=== PATIENT | female | born 1990 | race Caucasian/White ===

== ENCOUNTER 2017-05-07 12:53 | Emergency (ER) | payer MEDICAID ==
[~2017-05-07] VITALS: Ht 160 cm; Wt 83.9 kg
[~2017-05-07 12:53] MED LIST: PRENATAL VITAMINS TABLET
[2017-05-07 15:07] VITALS: BP 115/62
[2017-05-07] MEDS ORDERED: cefTRIAXone SOD 1,000 MG VL IM ONE (15:15)
[2017-05-07] MEDS ORDERED: diphenhdrAMINE HCL 50 MG/1 ML VL IM ONE (15:15)
[2017-05-07] MEDS ORDERED: methylPREDNISolone SOD SUCC 125 MG/2 ML VL IM ONE (15:15)
[2017-05-07] MEDS ORDERED: TETANUS-DIPTH-ACEL PERTUSSIS 0.5ML SYRG IM ONE (15:15)
== END 2017-05-07 15:25 | disposition home or self-care (01) ==
LOC: ER 12:55
DX: S40.262A Insect bite (nonvenomous) of left shoulder, initial encounter (principal); L03.114 Cellulitis of left upper limb; Z23 Encounter for immunization; W57.XXXA Bitten or stung by nonvenomous insect and other nonvenomous arthropods, initial encounter; Y93.89 Activity, other specified; Y99.8 Other external cause status; Y92.89 Other specified places as the place of occurrence of the external cause; Z87.442 Personal history of urinary calculi
CPT/HCPCS: 90471; 90715; 96372; 99284; J0696; J1200; J2930

== ENCOUNTER 2018-05-24 10:59 | Emergency (ER) | payer MEDICAID ==
[~2018-05-24] VITALS: Ht 167.6 cm; Wt 86.2 kg
[2018-05-24 11:12] VITALS: BP 134/75
[2018-05-24] MEDS ORDERED: LORazepam 2MG/ML-1ML VIAL IV ONE (11:15)
[2018-05-24] MEDS ORDERED: LORazepam 0.5 MG TAB PO ONE (12:15)
== END 2018-05-24 12:06 | disposition home or self-care (01) ==
LOC: ER 10:59 → EDUNIT# 10:59 → EDBD 10:59 → ER 12:00
DX: F41.9 Anxiety disorder, unspecified (principal); Z87.442 Personal history of urinary calculi
CPT/HCPCS: 96374; 99284; J2060

== ENCOUNTER 2018-07-25 11:04 | Emergency (ER) | payer MEDICAID ==
[~2018-07-25] VITALS: Ht 157.5 cm; Wt 77.1 kg
[2018-07-25 11:10] VITALS: BP 114/82
[2018-07-25 11:47] LABS: Basophils # (auto) 0.1 uL; Basophils % (auto) 0.8 % (0.0-2.0); Eosinophils # (auto) 0.1 uL; Eosinophils % (auto) 0.9 % (0.0-7.0); Hematocrit 45.6 % (36.0-46.0); Hemoglobin 15.5 g/dL (12.2-16.2); Lymphocytes # (auto) 1.3 uL; Lymphocytes % (auto) 19.4 % (10.0-50.0); Mean Corpuscular Hemoglobin 29.9 pg (28.0-32.0); Mean Corpuscular Hgb Conc. 33.9 g/dL (32.0-36.0); Mean Corpuscular Volume 88.1 fL (80.0-100.0); Monocytes # (auto) 0.6 uL; Monocytes % (auto) 9.3 % (0.0-12.0); Neutrophils # (auto) 4.8 uL; Neutrophils % (auto) 69.6 % (37.0-80.0); Nucleated Red Blood Cells % 0.1 %; Platelet Count (auto) 374 10^3/uL (140-450); Red Blood Cells 5.18 10^6/uL (4.0-5.20); Red Cell Distribution Width 12.7 % (11.8-14.3); White Blood Cell 6.9 10^3/uL (4.4-10.8)
[2018-07-25 12:08] LABS: BUN/Creatinine Ratio 8.1; Bilirubin, Total 0.6 mg/dL (0.2-1.0); Calcium 8.9 mg/dL (8.5-10.1); Potassium 3.7 mmol/L (3.5-5.1); Total Protein 8.5 g/dL (6.4-8.2)
== END 2018-07-25 15:00 | disposition left against medical advice (07) ==
LOC: EDUNIT# 11:04 → EDBD 11:04 → ER 11:04
DX: R10.9 Unspecified abdominal pain (principal); Z53.21 Procedure and treatment not carried out due to patient leaving prior to being seen by health care provider
CPT/HCPCS: 36415; 80053; 82150; 83690; 84702; 85025

== ENCOUNTER 2022-11-14 17:11 | Emergency (ER) | payer MEDICAID ==
[~2022-11-14] VITALS: Ht 160 cm; Wt 88.6 kg
[2022-11-14 18:20] VITALS: BP 121/72
[2022-11-14] MEDS ORDERED: KETOROLAC TROMETH 60MG/2ML VIAL IM ONE (18:45)
[2022-11-14] MEDS ORDERED: HYDROcodone-ACET 5/325MG TAB PO ONE (21:15)
[2022-11-14] MEDS ORDERED: ONDANSETRON ODT 4 MG TAB PO ONE (21:15)
== END 2022-11-15 01:04 | disposition home or self-care (01) ==
LOC: ER 17:11
DX: M54.50 Low back pain, unspecified (principal); M54.2 Cervicalgia; R51.9 Headache, unspecified; V43.52XA Car driver injured in collision with other type car in traffic accident, initial encounter; Y93.89 Activity, other specified; Y92.89 Other specified places as the place of occurrence of the external cause; Y99.8 Other external cause status
CPT/HCPCS: 72040; 72100; 96372; 99284; J1885; Q0162

== ENCOUNTER 2023-02-18 14:01 | Emergency (ER) | payer MEDICAID ==
[~2023-02-18] VITALS: Ht 160 cm; Wt 87.0 kg
[2023-02-18 14:20] LABS: Urine WBC None Seen /hpf (0 - 5)
[2023-02-18 14:34] LABS: Urine Bacteria FEW /hpf (None Seen); Urine Blood Negative /uL (Negative)
[2023-02-18 15:11] VITALS: BP 114/94
[2023-02-18] MEDS ORDERED: METH750T22 PO (16:06)
[2023-02-18] MEDS ORDERED: IBUP800T27 PO (16:06)
== END 2023-02-18 16:11 | disposition home or self-care (01) ==
LOC: ER 14:01
DX: S39.011A Strain of muscle, fascia and tendon of abdomen, initial encounter (principal); K42.9 Umbilical hernia without obstruction or gangrene; Z88.6 Allergy status to analgesic agent; Z87.442 Personal history of urinary calculi; X58.XXXA Exposure to other specified factors, initial encounter; Y93.89 Activity, other specified; Y92.89 Other specified places as the place of occurrence of the external cause; Y99.8 Other external cause status
CPT/HCPCS: 74176; 81001

== ENCOUNTER 2023-06-07 08:05 | Emergency (ER) | payer MEDICAID ==
[~2023-06-07] VITALS: Ht 160 cm; Wt 85.0 kg
[~2023-06-07 08:05] MED LIST changes: +IBUP-1456 PO; +METH-1182 PO
[2023-06-07 08:12] VITALS: BP 115/56
[2023-06-07] MEDS ORDERED: ACETAMINOPHEN 500 MG TAB PO ONE (09:00)
[2023-06-07] MEDS ORDERED: cefTRIAXone SOD 1,000 MG VL IM ONE (09:00)
[2023-06-07 09:05] LABS: Basophils # (auto) 0.1 10 ^3/uL (0-0.2); Basophils % (auto) 0.7 % (0.0-2.0); Eosinophils # (auto) 0.1 10 ^3/uL (0-0.8); Eosinophils % (auto) 0.9 % (0.0-7.0); Hematocrit 41.5 % (36.0-46.0); Hemoglobin 14.3 g/dL (12.2-16.2); Lymphocytes # (auto) 1.3 10 ^3/uL (0.4-5.4); Lymphocytes % (auto) 11.6 % (10.0-50.0); Mean Corpuscular Hemoglobin 30.9 pg (28.0-32.0); Mean Corpuscular Hgb Conc. 34.4 g/dL (32.0-36.0); Mean Corpuscular Volume 89.8 fL (80.0-100.0); Monocytes # (auto) 0.8 10 ^3/uL (0-1.3); Monocytes % (auto) 7.6 % (0.0-12.0); Neutrophils # (auto) 8.8 10 ^3/uL (1.6-8.6); Neutrophils % (auto) 79.2 % (37.0-80.0); Nucleated Red Blood Cells % 0.1 %; Red Blood Cells 4.62 10^6/uL (4.0-5.20); Red Cell Distribution Width 12.3 % (11.8-14.3); White Blood Cell 11.1 10^3/uL (4.4-10.8)
[2023-06-07] MEDS ORDERED: BACDST PO (09:38)
[2023-06-07] MEDS ORDERED: ACET-1304 PO (09:38)
== END 2023-06-07 09:43 | disposition home or self-care (01) ==
LOC: ER 08:05
DX: L03.115 Cellulitis of right lower limb (principal); Z87.442 Personal history of urinary calculi; Z87.440 Personal history of urinary (tract) infections
CPT/HCPCS: 36415; 85025; 96372; 99283; J0696

== ENCOUNTER 2024-11-11 12:41 | Inpatient (IN) | payer MEDICAID ==
[~2024-11-11] VITALS: Ht 160 cm; Wt 90.8 kg
[~2024-11-11 12:41] MED LIST changes: +ACET-1304 PO; +BACDST PO
--- NOTE | 2024-11-11 13:22 | ED.PDOC ---
GI ASSESSMENT HPI Comments HPI: Poor Historian. 34-year-old female presents to the emergency department for evaluation of 1 hour history of lower abdominal pain. She points to her suprapubic region. Pain is associated with nausea and vomiting one episode nonbilious nonbloody. Patient denies any other acute symptoms. Pain is constant nonradiating. No alleviating or precipitating factors. Patient is ambulatory in the ED. VITALS: Temp: 98.9F RR: 16 02 sat : 100 % on room air HR: 80 BP: 122/76 PMH: denies PSH: Social history: denies tobacco use, denies ETOH use, denies drug use Medications: denies Allergies: nkda REVIEW OF SYSTEMS: CONSTITUTIONAL: Denies acute: fever, diaphoresis, chills, generalized weakness. HEAD: Denies acute: headache, photophobia Eyes: Denies acute: Double vision, vision loss, eye pain, eye discharge. EARS: Denies acute: tinnitus, hearing loss, ear discharge, ear pain, THROAT: Denies acute: sore throat, swelling, difficulty swallowing , pain with swallowing, change in voice. NECK: Denies acute: neck pain, neck swelling, stiff neck. HEART: Denies acute : chest pain, palpitations, LUNGS: Denies acute: SOB, wheezing, cough, hemoptysis ABDOMEN: Denies acute: diarrhea, melena , hematemesis, hematochezia SKIN: Denies acute: rash, redness, lesions, itchiness. EXTREMITIES: Denies acute: calf pain, numbness, tingling, weakness, denies pain in extremity. Denies acute: Low back pain. Neuro: Denies acute: focal neurological deficit, motor or sensory focal neurological deficit, tremors, seizure like activity, confusion, dizziness, change in mental status, loss of bowel or bladder function, cauda equina like symptoms. : Denies acute: dysuria, hematuria, flank pain, increase in urinary frequency. PSYCH: Denies acute: hallucination, suicidal ideation, homicidal ideation. FEMALE: Denies acute: abnormal vaginal bleeding, foul odor, unusual discharge. PHYSICAL EXAM: General: no acute distress, awake and alert. Head: normocephalic, atraumatic. Neck: supple, trachea is midline, no swelling. Throat: Normal phonation. Eyes:, no erythema, no purulent discharge, no proptosis, no icterus. Heart: regular rate, regular rhythm, no significant murmur appreciated. Lungs: no apparent respiratory distress, Able to speak in full sentences. No wheezing, no rhonchi, no crackles. No stridors Clear to auscultation bilaterally. Abdomen: Suprapubic tender to palpation, non distended, soft, no guarding, no rebound, + bowel sounds. Neuro: Awake, Alert, oriented to name, self, situation, follows commands GCS=15. Speech is normal. Skin: no petechia, no purpura, no cyanosis, non-pale, not jaundice. Lower extremities: --no - Pitting edema no deformity, no focal swelling, no calf TTP. Makes eye contact. moves all four extremities. Ambulating in the ED independently. Chief Complaint: Abdominal Pain Time Seen by MD: 12:55 Primary Care Provider: UNKNOWN Reviewed Notes: Nurses Notes, Medications, Allergies Allergies: Coded Allergies: NO KNOWN ALLERGIES (Unverified , 06/16/13) Home Meds Active Scripts Sulfamethoxazole W/Trimethopri (Bactrim Ds Tablet) 1 Tab Tb, 1 TAB PO BID for 10 Days, #20 TAB 0 Refills Prov:DOROTHY MANUEL [employer] AUTHOR 06/07/23 Acetaminophen (Tylenol Extra Strength) 500 Mg Tab, 500 MG PO QID for 14 Days, #56 TAB 0 Refills Prov:DOROTHY MANUEL M[employer] AUTHOR 06/07/23 Methocarbamol (Methocarbamol) 750 Mg Tab, 750 MG PO QHSP PRN, #20 TAB Prov:SHRAVAN ALBERTO 02/18/23 Ibuprofen (Ibuprofen) 800 Mg Tab, 1 TAB PO TID, #30 TAB Prov:SHRAVAN ALBERTO 02/18/23 Reported Medications [ Vitamins Tablet] No Conflict Check 08/02/13 Information Source: Patient Mode of Arrival: Ambulatory Past Medical History PAST MEDICAL HISTORY: Kidney Stones, UTI'S Surgical History: OPTIMIZATION SPECIALIST History: No Pertinent OPTIMIZATION SPECIALIST History Family History Family History: Reviewed,noncontributory to illness Social History Smoker: Non-Smoker Alcohol: Denies ETOH Use Drugs: Denies Drug Use Lives In: Home Was a procedure done? Was a procedure done?: No GI differential Dx Differential Diagnosis: Other (DDX include Diverticulitis, colitis, gastroen teritis, acute abdomen, SBO, enteritis, constipation, volvulus, appendicitis, Gallbladder disease, choledocolithiasis, ascending cholangitis, pancreatitis, intraAbdominal mass/neoplasm, hepatitis, UTI, pylonephritis, kidney stone, aneurysm, dissection, Inflammatory bowel disease, gastroparesis, ischemic bowel, ovarian torsion, ovarian cyst/mass, tubo-ovarian abscess, , ec topic , PID, STD.) X-Ray, Labs, Meds, VS Vital Signs Date Time Temp Pulse Resp B/P (MAP) Pulse Ox O2 Delivery O2 Flow Rate FiO2 11/11/24 18:32 106/60 11/11/24 18:29 98.2 68 20 106/60 (75) 98 98.2 11/11/24 14:32 98.7 89 18 103/69 (80) 100 98.7 11/11/24 14:32 89 18 100 Room Air 11/11/24 14:30 89 18 100 Room Air* 0 21 11/11/24 12:59 98.9 80 16 122/76 (91) 100 Lab Test 11/11/24 13:38 11/11/24 13:05 Range/Units White Blood Count 20.0 H 4.4-10.8 10^3/uL Red Blood Count 4.87 4.0-5.20 10^6/uL Hemoglobin 14.9 12.2-16.2 g/dL Hematocrit 43.8 36.0-46.0 % Mean Corpuscular Volume 89.9 80.0-100.0 fL Mean Corpuscular Hemoglobin 30.5 28.0-32.0 pg Mean Corpuscular Hemoglobin Concent 33.9 32.0-36.0 g/dL Red Cell Distribution Width 13.0 11.8-14.3 % Platelet Count 428 140-450 10^3/uL Mean Platelet Volume 9.5 6.9-10.8 fL Neutrophils (%) (Auto) 86.4 H 37.0-80.0 % Lymphocytes (%) (Auto) 8.9 L 10.0-50.0 % Monocytes (%) (Auto) 3.4 0.0-12.0 % Eosinophils (%) (Auto) 1.0 0.0-7.0 % Basophils (%) (Auto) 0.3 0.0-2.0 % Neutrophils # (Auto) 17.3 H 1.6-8.6 10 ^3/uL Lymphocytes # (Auto) 1.8 0.4-5.4 10 ^3/uL Monocytes # (Auto) 0.7 0-1.3 10 ^3/uL Eosinophils # (Auto) 0.2 0-0.8 10 ^3/uL Basophils # (Auto) 0.1 0-0.2 10 ^3/uL Nucleated Red Blood Cells 0.1 % Sodium Level 141 136-145 mmol/L Potassium Level 4.2 3.5-5.1 mmol/L Chloride Level 107 98-107 mmol/L Carbon Dioxide Level 26 20-31 mmol/L Anion Gap 8 5-15 Blood Urea Nitrogen 9 9-23 mg/dL Creatinine 0.68 0.550-1.02 mg/dL Glomerular Filtration Rate Calc 116 >90 mL/min BUN/Creatinine Ratio 13.2 10.0-20.0 Serum Glucose 89 74-106 mg/dL Lactic Acid Level 2.0 0.4-2.0 mmol/L Calcium Level 10.0 8.7-10.4 mg/dL Total Bilirubin 0.7 0.2-1.0 mg/dL Aspartate Amino Transferase (AST) 11 L 13-40 U/L Alanine Aminotransferase (ALT) 17 7-40 U/L Alkaline Phosphatase 50 46-116 U/L Total Protein 7.0 5.7-8.2 g/dL Albumin 4.5 3.2-4.8 g/dL Lipase 27 12-53 U/L Beta HCG, Quantitative 2.1 1.5-4.2 mIU/mL Urine Color Yellow Yellow Urine Clarity Clear Clear Urine pH 6.0 5.0-9.0 Urine Specific [place] 1.023 1.001-1.035 Urine Protein Negative Negative Urine Ketones Negative Negative Urine Blood Negative Negative /uL Urine Nitrite Negative Negative Urine Bilirubin Negative Negative Urine Urobilinogen Normal Negative mg/dL Urine Leukocyte Esterase Negative Negative /uL Urine RBC None seen 0 - 4 /hpf Urine WBC 1 0 - 5 /hpf Urine Squamous Epithelial Cells Few <5 /hpf Urine Bacteria None seen None Seen /hpf Urine Mucus Few None Seen Urine Glucose Normal Normal mg/dL Urine Opiates Screen Neg NEGATIVE Urine Fentanyl Screen Neg NEGATIVE Urine Barbiturates Screen Neg NEGATIVE Urine Phencyclidine Screen Neg NEGATIVE Urine Amphetamines Screen Neg NEGATIVE Urine Benzodiazepines Screen Neg NEGATIVE Urine Cocaine Screen Neg NEGATIVE Urine Cannabinoids Screen Pos NEGATIVE Current Medications Medications (Trade) Dose Ordered Sig/Tacho Route Start Time Stop Time Status Last Admin Sodium Chloride 1,000 ml @ 1,000 mls/hr Q1H ONCE IV 11/11/24 13:15 11/11/24 14:14 DC 11/11/24 14:33 Ondansetron HCl (Zofran) 8 mg ONCE ONCE IV 11/11/24 13:15 11/11/24 13:16 DC 11/11/24 14:43 Piperacillin Sod/ Tazobactam Sod 100 ml @ 100 mls/hr ONCE ONCE IV 11/11/24 15:15 11/11/24 16:14 DC 11/11/24 15:20 Fentanyl Citrate 100 mcg ONCE ONCE IV 11/11/24 16:30 11/11/24 16:31 DC 11/11/24 18:32 [place] [id number] Ph: [phone] DIAGNOSTIC IMAGING Diagnostic Imaging Report : [id number] Signed PATIENT: MIA FERRISCCT: [id number] UNIT: [id number] : 1990 LOC: ER ROOM / BED: / AGE / SEX: 34 / F ADM STATUS: REG ER SERVICE 1311 ORDERING PHYSICIAN: VALENTINA QUIROGA DO PROCEDURE(s): ABPL - CT AB PEL WO CON-NO ORAL OR IV REASON: lower abd pain/n/v ORDER NUMBER(s): [id number], ACCESSION NUMBER(s): [id number] CT ABDOMEN AND PELVIS WITHOUT CONTRAST CLINICAL HISTORY: lower abd pain/n/v TECHNIQUE: Multiple contiguous axial images of the abdomen and pelvis without intravenous contrast. The images were reformatted degenerate coronal and sagittal reconstructions. All CT scans at this medical facility are performed using dose modulation techniques as appropriate to a performed exam including the following:Automated exposure control was utilized; adjustment of the MA and/or KV according to patient size; and use of iterative reconstruction technique. Radiation Dose Information: CT Dose: CTDI volume is 17.24 mGy. Dose-length product is 837.82 mGy*cm Comparison: CT CT AB PEL WO CON-NO ORAL OR IV on DOS: 02/18/23 FINDINGS: Evaluation of the abdomen and pelvis is limited without intravenous contrast. The liver, gallbladder, pancreas, kidneys, adrenal glands, and spleen appear within normal limits. There is no gross evidence of abdominal lymphadenopathy. There is no free fluid or free air. The stomach grossly appears unremarkable. The small and large bowel loops demonstrate normal caliber and appear within normal limits.. The abdominal aorta and IVC appear within normal limits. There is a tiny fat containing umbilical hernia. The bladder appears unremarkable for the degree of distention. Pelvic organ appe ars within normal limits. There is no gross evidence of a pelvic mass. There is no free fluid collection. Lung bases are clear. There is no acute osseous abnormality. IMPRESSION: 1. There is no acute process in the abdomen and pelvis. HS:Y ATED BY: DANIEL GARBER MD DICTATED DATE/TIME: 11/11/24 1502 SIGNED BY: DANIEL GARBER MD SIGNED DATE/TIME: 11/11/24 1502 CC: Patient Education/Counseling: Diagnosis, Treatment Family Education/Counseling: No Family Present Departure 1 Departure Impression: Primary Impression: Leukocytosis Additional Impression: Suprapubic pain, acute Disposition: 09 ADMITTED INPATIENT Admit to: Tele Condition: Guarded Discharged With: Self Critical Care Note Critical Care Time?: No I personally scribed for VALENTINA QUIROGA DO ([email or web address]) on 11/11/24 at 19:05. Electronically submitted by Mago Matthews ([facility]). VALENTINA QUIROGA DO Nov 11, 2024 13:22
[2024-11-11 13:30] LABS: Urine Bacteria None Seen /hpf (None Seen)
[2024-11-11 13:46] LABS: Urine Blood Negative /uL (Negative); Urine Clarity Clear (Clear); Urine Color Yellow (Yellow); Urine Mucus FEW (None Seen); Urine Protein, UAD Negative (Negative); Urine Specific Gravity 1.023 (1.001-1.035); Urine Urobilinogen Normal (Negative); Urine WBC 1 /hpf (0 - 5)
[2024-11-11 13:52] LABS: Cannabinoid Screen, Urine Pos (NEGATIVE)
[2024-11-11 14:01] LABS: Basophils # (auto) 0.1 10 ^3/uL (0-0.2); Basophils % (auto) 0.3 % (0.0-2.0); Eosinophils # (auto) 0.2 10 ^3/uL (0-0.8); Hematocrit 43.8 % (36.0-46.0); Hemoglobin 14.9 g/dL (12.2-16.2); Lymphocytes # (auto) 1.8 10 ^3/uL (0.4-5.4); Lymphocytes % (auto) 8.9 % (10.0-50.0); Mean Corpuscular Hemoglobin 30.5 pg (28.0-32.0); Mean Corpuscular Hgb Conc. 33.9 g/dL (32.0-36.0); Mean Corpuscular Volume 89.9 fL (80.0-100.0); Monocytes # (auto) 0.7 10 ^3/uL (0-1.3); Monocytes % (auto) 3.4 % (0.0-12.0); Neutrophils # (auto) 17.3 10 ^3/uL (1.6-8.6); Neutrophils % (auto) 86.4 % (37.0-80.0); Nucleated Red Blood Cells % 0.1 %; Platelet Count (auto) 428 10^3/uL (140-450); Red Blood Cells 4.87 10^6/uL (4.0-5.20)
[2024-11-11 14:10] LABS: Amphetamine Screen, Urine Neg (NEGATIVE); Barbiturate Scree,Urine Neg (NEGATIVE); Benzodiazephine Screen, Urine Neg (NEGATIVE); Cocaine Screen, Urine Neg (NEGATIVE); Opiate Scree,Urine Neg (NEGATIVE); Phencyclidine Screen, Urine Neg (NEGATIVE)
[2024-11-11 14:24] LABS: Alanine Aminotransferase 17 U/L (7-40); Albumin 4.5 g/dL (3.2-4.8); Alkaline Phosphatase 50 U/L (46-116); Anion Gap 8 (5-15); BUN/Creatinine Ratio 13.2 (10.0-20.0); Carbon Dioxide 26 mmol/L (20-31); Chloride 107 mmol/L (98-107); Glucose 89 mg/dL (74-106); Potassium 4.2 mmol/L (3.5-5.1); Sodium 141 mmol/L (136-145)
[2024-11-11 14:30] VITALS: PULSE 89; RESP 18; O2SAT 100
[2024-11-11 14:32] LABS: Aspartate Aminotransferase 11 U/L (13-40); Blood Urea Nitrogen 9 mg/dL (9-23)
[2024-11-11] MEDS: SODIUM CHLORIDE 0.9% 1,000 ML IV ONE (14:33)
[2024-11-11] MEDS: ONDANSETRON HCL 4 MG/2 ML VIAL IV ONE (14:43)
[2024-11-11 14:49] LABS: Lipase 27 U/L (12-53)
[2024-11-11 14:51] LABS: Bilirubin, Total 0.7 mg/dL (0.2-1.0)
--- NOTE | 2024-11-11 15:03 | DVH ---
CT ABDOMEN AND PELVIS WITHOUT CONTRAST CLINICAL HISTORY: lower abd pain/n/v TECHNIQUE: Multiple contiguous axial images of the abdomen and pelvis without intravenous contrast. The images were reformatted degenerate coronal and sagittal reconstructions. All CT scans at this medical facility are performed using dose modulation techniques as appropriate t o a performed exam including the following:Automated exposure control was utilized; adjustment of the MA and/or KV according to patient size; and use of iterative reconstruction technique. Radiation Dose Information: CT Dose: CTDI volume is 17.24 mGy. Dose-length product is 837.82 mGy*cm Comparison: CT CT AB PEL WO CON-NO ORAL OR IV on DOS: 02/18/23 FINDINGS: Evaluation of the abdomen and pelvis is limited without intravenous contrast. The liver, gallbladder, pancreas, kidneys, adrenal glands, and spleen appear within normal limits. There is no gross evidence of abdominal lymphadenopathy. There is no free fluid or free air. The stomach grossly appears unremarkable. The small and large bowel loops demonstrate normal caliber and appear within normal limits.. The abdominal aorta and IVC appear within normal limits. There is a tiny fat containing umbilical her rebecca. The bladder appears unremarkable for the degree of distention. Pelvic organ appears within normal german its. There is no gross evidence of a pelvic mass. There is no free fluid collection. Lung bases are clear. There is no acute osseous abnormality. IMPRESSION: 1. There is no acute process in the abdomen and pelvis. HS:Y
[2024-11-11] MEDS: PIPERACILLIN-TAZOB 3.375GM 100 ML IV ONE (15:20)
[2024-11-11] MEDS: fentaNYL CITRATE 100 MCG/2 ML VL IV ONE (18:32)
[2024-11-11] MEDS ORDERED: MORPHINE SULFATE INJ 2 MG/ml SYRG IV PRN ×2 (19:30→21:30)
[2024-11-11] MEDS ORDERED: ONDANSETRON HCL 4 MG/2 ML VIAL IV PRN (19:30)
[2024-11-11] MEDS ORDERED: ACETAMINOPHEN 325 MG TAB PO PRN (19:30)
[2024-11-11] MEDS ORDERED: DOCUSATE SOD 100 MG CAP PO PRN (19:30)
[2024-11-11] MEDS: PANTOPRAZOLE 40 MG/10 ML VIAL INJ IV ONE (20:15)
--- NOTE | 2024-11-11 21:23 | DVHHP2 ---
History of Present Illness Reason for Visit: Acute abdominal pain History of Present Illness The patient is a 34-year-old female who denies past medical history presented to [facility] ED with complaint of acute abdominal pain. Patient reports symptoms progressively get worse with suprapubic abdominal pain, rating 7/10 numeric scale, associated nausea, vomiting, getting worse today that prompted this visit. Patient was seen and evaluated in the ED, laboratory data shows WBC 20.0, platelets 428, sodium 141, potassium 4.2, BUN 9, creatinine 0.68, glucose 89, lipase 27, AST 11, ALT 17. Please see medication orders section in the computer. On my assessment, patient denied chest pain, no headache, no dizziness, no shortness of breath, no nausea or vomiting at this moment, no fever, no chills. No other modifying factor or other associated signs and symptoms noted. The patient was admitted to the hospital for further evaluation and medical management. Past Medical History Denies past medical history Past Surgical History section Family History Reviewed, noncontributory to the management of this case. Past Social History The patient lives at home, denies smoking, alcohol or illicit drugs abuse. Review of Systems Constitutional: No: Fever, Chills, Sweats, Weakness, Malaise, Other Eyes: No: Pain, Vision change, Conjunctivae inflammation, Eyelid inflammation, Other, Redness ENT: No: Ear pain, Ear discharge, Nose pain, Nose discharge, Nose congestion, Mouth pain, Mouth swelling, Throat pain, Throat swelling, Other Respiratory: No: Cough, Dry, Shortness of breath, SOB with excertion, Wheezing, Hemoptysis, Pleuritic Pain, Sputum, Wheezing, Other Cardiovascular: No: Chest Pain, Palpitations, Orthopnea, Paroxysmal Noc. Dyspnea, Edema, Lt Headedness, Other Gastrointestinal: Nausea, Vomiting, Abdominal Pain; No: Diarrhea, Constipation, Melena, Hematochezia, Other Genitourinary: No Dysuria, No Frequency, No Incontinence, No Hematuria, No Retention, No Other Musculoskeletal: No: other, neck pain, shoulder pain, arm pain, back pain, hand pain, leg pain, foot pain Skin: No: Rash, Lesions, Jaundice, Bruising, Other Neurological: No: Weakness, Numbness, Incoordination, Change in speech, Confusion, Seizures, Other Allergies: Coded Allergies: NO KNOWN ALLERGIES (Unverified , 06/16/13) Medications Current Medications Medications Dose Ordered Sig/Tacho Route Start Time Stop Time Status Last Admin Dose Admin Piperacillin Sod/ Tazobactam Sod 100 ml @ 25 mls/hr Q8HR IV 11/11/24 22:00 UNV Pantoprazole Sodium 40 mg DAILY@0630 IV 11/12/24 06:30 Sodium Chloride 10 ml Q8HR IV 11/11/24 22:00 Acetaminophen/ Hydrocodone Bitart 1 tab Q4HP PRN PO 11/11/24 19:30 Ondansetron HCl 4 mg Q4HP PRN IV 11/11/24 19:30 Docusate Sodium 100 mg BIDPRN PRN PO 11/11/24 19:30 Acetaminophen 650 mg Q6HP PRN PO 11/11/24 19:30 Morphine Sulfate 2 mg Q4HPRN PRN IV 11/11/24 19:30 Exam Vital Signs Vital Signs Date Time Temp Pulse Resp B/P (MAP) Pulse Ox O2 Delivery O2 Flow Rate FiO2 11/11/24 19:01 98.6 65 20 114/59 (77) 98 98.6 11/11/24 14:32 Room Air 11/11/24 14:30 0 21 General Appearance: Alert, Oriented X3, Cooperative, No acute distress HEENT: Atraumatic, PERRLA, EOMI, Mucous membr. moist/pink Respiratory: Clear to auscultation, Normal air movement Cardiovascular: Regular rate, Normal S1, Normal S2, No murmurs Abdominal: Normal bowel sounds, Soft, No hepatospenomegaly, No masses, Other (Reports tenderness) Extremities: No clubbing, No cyanosis, No edema, Normal pulses, No tenderness/swelling Skin: No rashes, No breakdown, No significant lesion Neuro: Normal gait, Normal speech, Strength at 5/5 X4 ext, Normal tone, Sensation intact, Cranial nerves 3-12 NL, Reflexes 2+ Psych/Mental Status: Mental status NL, Mood NL Labs/Xrays Labs Test 11/11/24 13:38 11/11/24 13:05 Range/Units White Blood Count 20.0 H 4.4-10.8 10^3/uL Red Blood Count 4.87 4.0-5.20 10^6/uL Hemoglobin 14.9 12.2-16.2 g/dL Hematocrit 43.8 36.0-46.0 % Mean Corpuscular Volume 89.9 80.0-100.0 fL Mean Corpuscular Hemoglobin 30.5 28.0-32.0 pg Mean Corpuscular Hemoglobin Concent 33.9 32.0-36.0 g/dL Red Cell Distribution Width 13.0 11.8-14.3 % Platelet Count 428 140-450 10^3/uL Mean Platelet Volume 9.5 6.9-10.8 fL Neutrophils (%) (Auto) 86.4 H 37.0-80.0 % Lymphocytes (%) (Auto) 8.9 L 10.0-50.0 % Monocytes (%) (Auto) 3.4 0.0-12.0 % Eosinophils (%) (Auto) 1.0 0.0-7.0 % Basophils (%) (Auto) 0.3 0.0-2.0 % Neutrophils # (Auto) 17.3 H 1.6-8.6 10 ^3/uL Lymphocytes # (Auto) 1.8 0.4-5.4 10 ^3/uL Monocytes # (Auto) 0.7 0-1.3 10 ^3/uL Eosinophils # (Auto) 0.2 0-0.8 10 ^3/uL Basophils # (Auto) 0.1 0-0.2 10 ^3/uL Nucleated Red Blood Cells 0.1 % Sodium Level 141 136-145 mmol/L Potassium Level 4.2 3.5-5.1 mmol/L Chloride Level 107 98-107 mmol/L Carbon Dioxide Level 26 20-31 mmol/L Anion Gap 8 5-15 Blood Urea Nitrogen 9 9-23 mg/dL Creatinine 0.68 0.550-1.02 mg/dL Glomerular Filtration Rate Calc 116 >90 mL/min BUN/Creatinine Ratio 13.2 10.0-20.0 Serum Glucose 89 74-106 mg/dL Lactic Acid Level 2.0 0.4-2.0 mmol/L Calcium Level 10.0 8.7-10.4 mg/dL Total Bilirubin 0.7 0.2-1.0 mg/dL Aspartate Amino Transferase (AST) 11 L 13-40 U/L Alanine Aminotransferase (ALT) 17 7-40 U/L Alkaline Phosphatase 50 46-116 U/L Total Protein 7.0 5.7-8.2 g/dL Albumin 4.5 3.2-4.8 g/dL Lipase 27 12-53 U/L Beta HCG, Quantitative 2.1 1.5-4.2 mIU/mL Urine Color Yellow Yellow Urine Clarity Clear Clear Urine pH 6.0 5.0-9.0 Urine Specific [place] 1.023 1.001-1.035 Urine Protein Negative Negative Urine Ketones Negative Negative Urine Blood Negative Negative /uL Urine Nitrite Negative Negative Urine Bilirubin Negative Negative Urine Urobilinogen Normal Negative mg/dL Urine Leukocyte Esterase Negative Negative /uL Urine RBC None seen 0 - 4 /hpf Urine WBC 1 0 - 5 /hpf Urine Squamous Epithelial Cells Few <5 /hpf Urine Bacteria None seen None Seen /hpf Urine Mucus Few None Seen Urine Glucose Normal Normal mg/dL Urine Opiates Screen Neg NEGATIVE Urine Fentanyl Screen Neg NEGATIVE Urine Barbiturates Screen Neg NEGATIVE Urine Phencyclidine Screen Neg NEGATIVE Urine Amphetamines Screen Neg NEGATIVE Urine Benzodiazepines Screen Neg NEGATIVE Urine Cocaine Screen Neg NEGATIVE Urine Cannabinoids Screen Pos NEGATIVE PATIENT: MIA FERRISCCT: [id number] UNIT: [id number] : 1990 LOC: ER ROOM / BED: / AGE / SEX: 34 / F ADM STATUS: REG ER SERVICE 1311 ORDERING PHYSICIAN: VALENTINA QUIROGA DO PROCEDURE(s): ABPL - CT AB PEL WO CON-NO ORAL OR IV REASON: lower abd pain/n/v ORDER NUMBER(s): [id number], ACCESSION NUMBER(s): [id number] CT ABDOMEN AND PELVIS WITHOUT CONTRAST CLINICAL HISTORY: lower abd pain/n/v TECHNIQUE: Multiple contiguous axial images of the abdomen and pelvis without intravenous contrast. The images were reformatted degenerate coronal and sagittal reconstructions. All CT scans at this medical facility are performed using dose modulation techniques as appropriate to a performed exam including the following:Automated exposure control was utilized; adjustment of the MA and/or KV according to patient size; and use of iterative reconstruction technique. Radiation Dose Information: CT Dose: CTDI volume is 17.24 mGy. Dose-length product is 837.82 mGy*cm Comparison: CT CT AB PEL WO CON-NO ORAL OR IV on DOS: 02/18/23 FINDINGS: Evaluation of the abdomen and pelvis is limited without intravenous contrast. The liver, gallbladder, pancreas, kidneys, adrenal glands, and spleen appear within normal limits. There is no gross evidence of abdominal lymphadenopathy. There is no free fluid or free air. The stomach grossly appears unremarkable. The small and large bowel loops demonstrate normal caliber and appear within normal limits.. The abdominal aorta and IVC appear within normal limits. There is a tiny fat containing umbilical hernia. The bladder appears unremarkable for the degree of distention. Pelvic organ appears within normal limits. There is no gross evidence of a pelvic mass. There is no free fluid collection. Lung bases are clear. There is no acute osseous abnormality. IMPRESSION: 1. There is no acute process in the abdomen and pelvis. Assessment/Plan Assessment/Plan Leukocytosis, unspecified Suprapubic pain, acute Plan 1. Admit to med surge unit 2. Breathing treatment 3. Pain control management 4. IV antibiotic management 5. Management of fluids and electrolytes 6. Consultation for hospitalist 7. Diagnostic test abdomen/pelvis CT 8. DVT prophylaxis-on SCDs 9. Repeat labs CBC, CMP in a.m. 10. Continue with current medical management 11. Treatment plan discussed with patient and RN. Patient verbalized understanding. Plan discussed with: Patient, Other (RN) My Orders Orders - CARSON ANSARI DNP Procedure Category Date Status Time Piperacillin-Tazob PHA 11/11/24 Logged 3.375gm (Zosyn 3.375g 22:00 Pantoprazole PHA 11/12/24 In Process (Protonix) 06:30 Allergies AISHA 11/11/24 In Process 19:28 Code Status CODE 11/11/24 Transmitted 19:28 Sodium Chloride Lock PHA 11/11/24 In Process (Saline Lock Ns) 22:00 Oxygen Per Hour RT 11/11/24 Transmitted 19:28 Hydrocodone-Acet PHA 11/11/24 In Process 5/325mg Tab (Hope 19:30 Ondansetron Hcl PHA 11/11/24 In Process (Zofran) 19:30 Docusate Sodium PHA 11/11/24 In Process Capsule (Colace 19:30 Complete Blood Count LAB 11/12/24 Verified 04:00 Comprehensive LAB 11/12/24 Verified Metabolic Panel 04:00 Condition: Serious AISHA 11/11/24 In Process 19:28 Acetaminophen Tablet PHA 11/11/24 In Process (Tylenol Tablet) 19:30 Clear Liq Diet DIET 11/12/24 Transmitted Breakfast Bedrest With Bathroom AISHA 11/11/24 In Process Privileg 19:28 Morphine Sulfate PHA 11/11/24 In Process Injection 19:30 Sequential AISHA 11/11/24 In Process Compression Device Problem List: (1) Suprapubic pain, acute (2) Leukocytosis, unspecified Date of Service: Nov 11, 2024 Billing Provider: CARSON ANSARI DNP Common Visit Codes: [id number] INP/OBS CARE (MOD) CARSON ANSARI DNP Nov 11, 2024 21:23
[2024-11-11] MEDS ORDERED: NITROGLYCERIN 0.4 MG SL TAB SL PRN (21:30)
[2024-11-11] MEDS: SODIUM CHLOR 0.9% PF (SALINE LOCK) 10ML VIAL/SYR IV SCH (22:46)
[2024-11-11] MEDS: PIPERACILLIN-TAZOB 3.375GM 100 ML IV SCH (22:52)
[2024-11-11 23:45] VITALS: BP 107/49; PULSE 68; RESP 17; TEMP 97.6; O2SAT 97
[2024-11-11] MEDS: HYDROcodone-ACET 5/325MG TAB PO PRN (23:57)
[2024-11-12] VITALS (9 sets, daily range): BP systolic 90–110; BP diastolic 41–62; PULSE 59–72; RESP 16–18; TEMP 97.6–99; O2SAT 96–100
[2024-11-12] MEDS ORDERED: FLUO-470 PO (00:03)
[2024-11-12] MEDS ORDERED: TRAZ-227 PO (00:03)
[2024-11-12] MEDS: PANTOPRAZOLE 40 MG/10 ML VIAL INJ IV SCH (06:44)
[2024-11-12 06:49] LABS: Basophils # (auto) 0 10 ^3/uL (0-0.2); Basophils % (auto) 0.3 % (0.0-2.0); Eosinophils # (auto) 0.2 10 ^3/uL (0-0.8); Eosinophils % (auto) 2.8 % (0.0-7.0); Hematocrit 36.7 % (36.0-46.0); Hemoglobin 12.6 g/dL (12.2-16.2); Lymphocytes # (auto) 2.6 10 ^3/uL (0.4-5.4); Lymphocytes % (auto) 28.7 % (10.0-50.0); Mean Corpuscular Hemoglobin 30.8 pg (28.0-32.0); Mean Corpuscular Hgb Conc. 34.5 g/dL (32.0-36.0); Mean Corpuscular Volume 89.4 fL (80.0-100.0); Monocytes # (auto) 0.5 10 ^3/uL (0-1.3); Monocytes % (auto) 6.1 % (0.0-12.0); Neutrophils # (auto) 5.5 10 ^3/uL (1.6-8.6); Neutrophils % (auto) 62.1 % (37.0-80.0); Platelet Count (auto) 300 10^3/uL (140-450); Red Cell Distribution Width 12.9 % (11.8-14.3); White Blood Cell 8.9 10^3/uL (4.4-10.8)
[2024-11-12 07:12] LABS: Alanine Aminotransferase 12 U/L (7-40); Albumin 3.7 g/dL (3.2-4.8); Anion Gap 7 (5-15); BUN/Creatinine Ratio 6.4 (10.0-20.0); Calcium 8.9 mg/dL (8.7-10.4); Carbon Dioxide 28 mmol/L (20-31); Chloride 106 mmol/L (98-107); Glucose 89 mg/dL (74-106); Sodium 141 mmol/L (136-145)
[2024-11-12 07:13] LABS: Total Protein 5.9 g/dL (5.7-8.2)
[2024-11-12 07:21] LABS: Alkaline Phosphatase 39 U/L (46-116); Aspartate Aminotransferase 9 U/L (13-40); Blood Urea Nitrogen 5 mg/dL (9-23); Potassium 3.3 mmol/L (3.5-5.1)
--- NOTE | 2024-11-12 14:01 | DVHPN2 ---
Assessment/Plan Assessment/Plan Progress note Subjective 34 yo F admitted for abdominal pain, diffuse. Able to tolerate oral, no N/V/D. hx of HSV-2, sexually active, no protection, 1 partner. Objective Physical exam Alert, oriented x3 PERRLA No JVD Clear breath sounds bilaterally S1-S2 regular rate and rhythm no murmur difusely tender abdomen, no rebound, guarding Moving all four extremities No lower extremity edema Lab wbc 20 (doubt) -> 8 K 3.3 UDS cannabis Imaging CTAP clear Assessment and plan abdominal pain, possible PID vs UTI UA clear send UCX ceft and doxy send RPR HIV GC regular diet pelvic uS Replete electrolytes Diet regular DVT prophylaxis ambulatory Plan discussed with: Patient My Orders Orders - TRACI GALLARDO MD Procedure Category Date Status Time Pelvic US 11/12/24 Verified 13:56 Chlamydia/Gc LAB 11/12/24 Verified Amplification 13:56 Hiv 1&2 Antibody LAB 11/12/24 Verified 13:56 RPR LAB 11/12/24 Verified 13:56 [place] LAB 11/12/24 Verified 13:56 Ceftriaxone Ivpb PHA 11/13/24 Verified Rocephin 09:00 Doxycycline PHA 11/12/24 Verified 100mg/250ml 14:00 Regular Diet DIET 11/12/24 Verified Dinner Date of Service: Nov 12, 2024 Billing Provider: TRACI GALLARDO MD Common Visit Codes: [id number] INP/OBS CARE(HIGH) TRACI GALLARDO MD Nov 12, 2024 14:01
[2024-11-12 14:38] LABS: Basophils # (auto) 0 10 ^3/uL (0-0.2); Basophils % (auto) 0.6 % (0.0-2.0); Eosinophils # (auto) 0.3 10 ^3/uL (0-0.8); Eosinophils % (auto) 3.7 % (0.0-7.0); Hematocrit 36.8 % (36.0-46.0); Hemoglobin 12.6 g/dL (12.2-16.2); Lymphocytes % (auto) 26.8 % (10.0-50.0); Mean Corpuscular Hemoglobin 30.9 pg (28.0-32.0); Mean Corpuscular Hgb Conc. 34.3 g/dL (32.0-36.0); Mean Corpuscular Volume 90.1 fL (80.0-100.0); Monocytes # (auto) 0.6 10 ^3/uL (0-1.3); Monocytes % (auto) 7.3 % (0.0-12.0); Neutrophils # (auto) 4.7 10 ^3/uL (1.6-8.6); Neutrophils % (auto) 61.6 % (37.0-80.0); Platelet Count (auto) 320 10^3/uL (140-450); Red Blood Cells 4.08 10^6/uL (4.0-5.20); Red Cell Distribution Width 13.2 % (11.8-14.3); White Blood Cell 7.6 10^3/uL (4.4-10.8)
--- NOTE | 2024-11-12 15:38 | DVH ---
INDICATION: PID TECHNIQUE: Multiple real-time grayscale transabdominal sonographic images along with color and duplex Doppler of the uterus and ovaries were obtained. COMPARISON: None FINDINGS: The uterus measures 9.6 x 4.0 x 5.4 cm. The endometrial stripe measures 0.2 cm. Right ovary measures 3.8 x 2.4 x 2.8 cm with normal Doppler color flow. Right ovarian cyst measures 2.2 cm. Left ovary measures 1.9 x 1.8 x 1.5 cm with normal Doppler color flow IMPRESSION: 1. Grossly unremarkable pelvic ultrasound.
[2024-11-12] MEDS: DOXYCYCLINE 100MG/250ML 250 ML IV SCH (17:00)
[2024-11-13] VITALS (8 sets, daily range): BP systolic 96–125; BP diastolic 51–79; PULSE 60–75; RESP 13–20; TEMP 97.8–98.9; O2SAT 95–98
[2024-11-13] MEDS: cefTRIAXone 1GM/50ML D5W 50 ML IV SCH (09:25)
--- NOTE | 2024-11-13 15:27 | DVHPN2 ---
Assessment/Plan Assessment/Plan Progress note Subjective 34 yo F admitted for abdominal pain, diffuse. Able to tolerate oral, no N/V/D. hx of HSV-2, sexually active, no protection, 1 partner. patient seen by me today during rounds improving, covered with ceft and doxy, labs pending result Objective Physical exam Alert, oriented x3 PERRLA No JVD Clear breath sounds bilaterally S1-S2 regular rate and rhythm no murmur difusely tender abdomen, no rebound, guarding Moving all four extremities No lower extremity edema Lab wbc 20 (doubt) -> 8 K 3.3 UDS cannabis Imaging CTAP clear Assessment and plan abdominal pain, possible PID vs UTI UA clear send UCX ceft and doxy send RPR HIV GC regular diet pelvic uS wnl Replete electrolytes Diet regular DVT prophylaxis ambulatory Plan discussed with: Patient Date of Service: Nov 13, 2024 Billing Provider: TRACI GALLARDO MD Common Visit Codes: [id number] INP/OBS CARE(HIGH) TRACI GALLARDO MD Nov 13, 2024 15:27
[2024-11-14 01:00] VITALS: BP 116/65; PULSE 91; RESP 13; TEMP 98.3; O2SAT 97
[2024-11-14 05:00] VITALS: BP 114/66; PULSE 69; RESP 13; TEMP 98.2; O2SAT 93
[2024-11-14 05:58] VITALS: O2SAT 97
[2024-11-14 13:00] VITALS: BP 103/68; PULSE 62; RESP 18; TEMP 98.1; O2SAT 96
[2024-11-14] MEDS ORDERED: DOXY-286 PO (16:10)
[2024-11-14] MEDS ORDERED: TRAM-626 PO (16:10)
--- NOTE | 2024-11-14 16:16 | DVHDS2 ---
Discharge Summary Date of Admission Nov 11, 2024 at 21:22 Date of Discharge: Nov 14, 2024 Labs/Diagnostic Data: Laboratory Results Test 11/13/24 09:39 11/12/24 14:15 11/12/24 06:03 11/11/24 13:38 White Blood Count 7.6 10^3/uL (4.4-10.8) Red Blood Count 4.08 10^6/uL (4.0-5.20) Hemoglobin 12.6 g/dL (12.2-16.2) Hematocrit 36.8 % (36.0-46.0) Mean Corpuscular Volume 90.1 fL (80.0-100.0) Mean Corpuscular Hemoglobin 30.9 pg (28.0-32.0) Mean Corpuscular Hemoglobin Concent 34.3 g/dL (32.0-36.0) Red Cell Distribution Width 13.2 % (11.8-14.3) Platelet Count 320 10^3/uL (140-450) Mean Platelet Volume 9.2 fL (6.9-10.8) Neutrophils (%) (Auto) 61.6 % (37.0-80.0) Lymphocytes (%) (Auto) 26.8 % (10.0-50.0) Monocytes (%) (Auto) 7.3 % (0.0-12.0) Eosinophils (%) (Auto) 3.7 % (0.0-7.0) Basophils (%) (Auto) 0.6 % (0.0-2.0) Neutrophils # (Auto) 4.7 10 ^3/uL (1.6-8.6) Lymphocytes # (Auto) 2.0 10 ^3/uL (0.4-5.4) Monocytes # (Auto) 0.6 10 ^3/uL (0-1.3) Eosinophils # (Auto) 0.3 10 ^3/uL (0-0.8) Basophils # (Auto) 0 10 ^3/uL (0-0.2) Nucleated Red Blood Cells 0.0 % HIV (1&2) Antibody Negative (Negative) Sodium Level 141 mmol/L (136-145) Potassium Level 3.3 mmol/L (3.5-5.1) Chloride Level 106 mmol/L (98-107) Carbon Dioxide Level 28 mmol/L (20-31) Anion Gap 7 (5-15) Blood Urea Nitrogen 5 mg/dL (9-23) Creatinine 0.78 mg/dL (0.550-1.02) Glomerular Filtration Rate Calc 101 mL/min (>90) BUN/Creatinine Ratio 6.4 (10.0-20.0) Serum Glucose 89 mg/dL (74-106) Calcium Level 8.9 mg/dL (8.7-10.4) Total Bilirubin 1.0 mg/dL (0.2-1.0) Aspartate Amino Transferase (AST) 9 U/L (13-40) Alanine Aminotransferase (ALT) 12 U/L (7-40) Alkaline Phosphatase 39 U/L (46-116) Total Protein 5.9 g/dL (5.7-8.2) Albumin 3.7 g/dL (3.2-4.8) Lactic Acid Level 2.0 mmol/L (0.4-2.0) Lipase 27 U/L (12-53) Beta HCG, Quantitative 2.1 mIU/mL (1.5-4.2) Test 11/11/24 13:05 Urine Color Yellow (Yellow) Urine Clarity Clear (Clear) Urine pH 6.0 (5.0-9.0) Urine Specific [place] 1.023 (1.001-1.035) Urine Protein Negative (Negative) Urine Ketones Negative (Negative) Urine Blood Negative /uL (Negative) Urine Nitrite Negative (Negative) Urine Bilirubin Negative (Negative) Urine Urobilinogen Normal mg/dL (Negative) Urine Leukocyte Esterase Negative /uL (Negative) Urine RBC None seen /hpf (0 - 4) Urine WBC 1 /hpf (0 - 5) Urine Squamous Epithelial Cells Few /hpf (<5) Urine Bacteria None seen /hpf (None Seen) Urine Mucus Few (None Seen) Urine Glucose Normal mg/dL (Normal) Urine Opiates Screen Neg (NEGATIVE) Urine Fentanyl Screen Neg (NEGATIVE) Urine Barbiturates Screen Neg (NEGATIVE) Urine Phencyclidine Screen Neg (NEGATIVE) Urine Amphetamines Screen Neg (NEGATIVE) Urine Benzodiazepines Screen Neg (NEGATIVE) Urine Cocaine Screen Neg (NEGATIVE) Urine Cannabinoids Screen Pos (NEGATIVE) Other Laboratory Tests 11/12/24 14:15 11/12/24 06:03 Brief Hx & Hospital Course: 34 F admitted for abdominal pain, pelivc region, US and CTAP negative, GC RPR HIV sent, treated with ceft and doxy, clinical improvement, able to tolerate oral diet, will dc to complete doxy and pain mgmt Condition at Discharge: Good Final Diagnosis/Problems List lower abdominal pain UTI vs STI Discharge Disposition: Home Discharge Instruct/Medications Diet: Regular Activity: No Restrictions, As Tolerated Follow Up/Referral: discharge clinic for results on Medications: doxycyclin for 7 days tramadol PRN 39 Discharge Statement: "Patient was advised to return to the ER or call 911 if any headaches, dizziness, shortness of breath, chest pain, abdominal pain, bleeding, fevers, or worsening of medical condition. Patient was counseled about treatment plan, medications, possible side effects, patientverbalized understanding. All questions were answered to the best of my ability. This discharge took greater then 30 minutes in planning, reviewing documentation, counseling the patient, and discussing with other team members." ASSESSMENT ASSESSMENT Assessment lower abdominal pain UTI vs STI Date of Service: Nov 14, 2024 Billing Provider: TRACI GALLARDO MD Common Visit Codes: [id number] DISCH DAY >30min TRACI GALLARDO MD Nov 14, 2024 16:16
[2024-11-14 17:00] VITALS: BP 119/48; PULSE 60; RESP 14; TEMP 98.2; O2SAT 96
[2024-11-14 18:10] VITALS: BP 119/48; PULSE 60; RESP 14; TEMP 98.2; O2SAT 96
[2024-11-15 07:06] LABS: RPR Non Reactive (Non Reactive)
[2024-11-15 13:06] LABS: Chlamydia Trachomatis, NAA Negative (Negative); Neisseria gonorrhoeae, NAA Negative (Negative)
== END 2024-11-14 19:30 | disposition home or self-care (01) | DRG 463 ==
LOC: ER 12:41 → OVERFLOW 21:22 → WEST WING 21:23
PROVIDERS: ADMIT Nurse Practitioner Family; ATTEND Student in an Organized Health Care Education/Training Program
DX: N30.00 Acute cystitis without hematuria (principal); A64 Unspecified sexually transmitted disease; Z87.442 Personal history of urinary calculi
CPT/HCPCS: 36415; 74176; 76856; 80053; 80307; 81001; 83605; 83690; 84702; 85025; 86592; 86703; 87040; G0378; J2405; J2470; J2543; J3490

== ENCOUNTER 2024-12-30 07:39 | Inpatient (IN) | payer MEDICAID ==
[~2024-12-30] VITALS: Ht 160 cm; Wt 86.6 kg
[~2024-12-30 07:39] MED LIST changes: -ACET-1304 PO; -BACDST PO; +DOXY-286 PO; +FLUO-470 PO; -IBUP-1456 PO; -METH-1182 PO; -PRENATAL VITAMINS TABLET; +TRAM-626 PO; +TRAZ-227 PO
--- NOTE | 2024-12-30 08:40 | ED.PDOC ---
History of Present Illness HPI Comments 34 year old female presents to the ED with a chief complaint of syncope onset yesterday. Patient states she got up to use the bathroom when she was dizzy, experienced an unwitnessed syncope episode, woke up on the floor. Patient also she began experiencing sore throat, headache, nasal congestion, body aches this morning. Patient tested positive for an at home test yesterday, currently about 3-4 weeks . Upon ED arrival BS was 87, BP 104/63, HR 80, O2 sat 98%. PMHx kidney stones, UTIs. Denies blurry vision, nausea, vomiting, diarrhea, abdominal pain, chest pain, shortness of breath, dysuria. No other symptoms or modifying factors present at this time. Chief Complaint: Syncope Time Seen by MD: 08:14 Primary Care Provider: UNKNOWN Reviewed Notes: Medications, Allergies Allergies: Coded Allergies: NO KNOWN ALLERGIES (Unverified , 06/16/13) Home Meds Active Scripts Tramadol HCl (Tramadol HCl) 50 Mg Tab, 50 MG PO TIDP PRN for 5 Days, #15 TAB Prov:TRACI GALLARDO MD 11/14/24 Doxycycline Hyclate (DOXYCYCLINE HYCLATE) 100 Mg Tab, 1 TAB PO BID, #14 TAB Prov:TRACI GALLARDO MD 11/14/24 Reported Medications Trazodone Hcl (Trazodone Hcl) 50 Mg Tab, 1 TAB PO 11/12/24 Fluoxetine HCl (Fluoxetine HCl) 20 Mg Cap, 1 CAP PO DAILY 11/12/24 Information Source: Patient Mode of Arrival: Ambulatory Severity: Moderate Timing: Days Duration: Since onset Prehospital treatment: None Past Medical History PAST MEDICAL HISTORY: Kidney Stones, UTI'S 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 Family History Family History: Reviewed,noncontributory to illness Social History Smoker: Non-Smoker Alcohol: Denies ETOH Use Drugs: Denies Drug Use Lives In: Home EENTM: reports: nose congestion, throat pain Neurological: reports: dizziness, headache, others (syncope ) Musculoskeletal: reports: others (body aches ) Physical Exam General Appearance: No Apparent Distress, Normal HEENT: Normal ENT Inspection, Pharynx Normal, TMs Normal Neck: Full Range of Motion, Non-Tender, Normal, Normal Inspection Respiratory: Chest Non-Tender, Lungs Clear, No Accessory Muscle Use, No Respiratory Distress, Normal Breath Sounds Cardiovascular: No Edema, No JVD, No Murmur, No Gallop, Normal Peripheral Pulses, Regular Rate/Rhythm Breast Exam: Deferred Gastrointestinal: No Organomegaly, Non Tender, No Pulsatile Mass, Normal Bowel Sounds, Soft Genitalia: Deferred Pelvic: Deferred Rectal: Deferred Extremities: No calf tenderness, Normal capillary refill, Normal inspection, Normal range of motion, Non-tender, No pedal edema Musculoskeletal : Apperance: Normal Neurologic: Alert, parts counter clerk II-XII nml as Tested, No Motor Deficits, Normal Affect, Normal Mood, No Sensory Deficits Cerebellar Function: Normal Reflexes: Normal Skin: Dry, Normal Color, Warm Lymphatic: No Adenopathy Was a procedure done? Was a procedure done?: No EKG EKG : Pulse Rate (adult): 134 [place]: Normal Cardiac Rhythm: NSR (80) ST: Normal Comments sinus rhythm with 80 bpm Differential Dx Considerations may include: Intoxication, stroke, meningitis, UTI, sepsis, cardiac arrhythmia X-Ray, Labs, Meds, VS Vital Signs Date Time Temp Pulse Resp B/P (MAP) Pulse Ox O2 Delivery O2 Flow Rate FiO2 12/30/24 10:36 97.9 91 16 118/70 (86) 100 97.9 12/30/24 08:51 134 12/30/24 08:38 98.4 79 18 128/54 (78) 98 98.4 12/30/24 08:38 79 18 98 Room Air 12/30/24 08:05 80 12/30/24 08:00 97.7 80 20 104/63 (77) 98 Lab Test 12/30/24 09:03 12/30/24 08:35 12/30/24 08:05 12/30/24 07:57 Range/Units White Blood Count 8.6 4.4-10.8 10^3/uL Red Blood Count 4.52 4.0-5.20 10^6/uL Hemoglobin 13.8 12.2-16.2 g/dL Hematocrit 41.2 36.0-46.0 % Mean Corpuscular Volume 91.1 80.0-100.0 fL Mean Corpuscular Hemoglobin 30.6 28.0-32.0 pg Mean Corpuscular Hemoglobin Concent 33.5 32.0-36.0 g/dL Red Cell Distribution Width 13.6 11.8-14.3 % Platelet Count 341 140-450 10^3/uL Mean Platelet Volume 9.5 6.9-10.8 fL Neutrophils (%) (Auto) 63.4 37.0-80.0 % Lymphocytes (%) (Auto) 25.1 10.0-50.0 % Monocytes (%) (Auto) 7.2 0.0-12.0 % Eosinophils (%) (Auto) 3.7 0.0-7.0 % Basophils (%) (Auto) 0.6 0.0-2.0 % Neutrophils # (Auto) 5.5 1.6-8.6 10 ^3/uL Lymphocytes # (Auto) 2.2 0.4-5.4 10 ^3/uL Monocytes # (Auto) 0.6 0-1.3 10 ^3/uL Eosinophils # (Auto) 0.3 0-0.8 10 ^3/uL Basophils # (Auto) 0 0-0.2 10 ^3/uL Nucleated Red Blood Cells 0.0 % Sodium Level 140 136-145 mmol/L Potassium Level 3.5 3.5-5.1 mmol/L Chloride Level 106 98-107 mmol/L Carbon Dioxide Level 28 20-31 mmol/L Anion Gap 6 5-15 Blood Urea Nitrogen 8 L 9-23 mg/dL Creatinine 0.63 0.550-1.02 mg/dL Glomerular Filtration Rate Calc 118 >90 mL/min BUN/Creatinine Ratio 12.7 10.0-20.0 Serum Glucose 92 74-106 mg/dL Calcium Level 9.0 8.7-10.4 mg/dL Total Bilirubin 0.4 0.2-1.0 mg/dL Aspartate Amino Transferase (AST) 20 13-40 U/L Alanine Aminotransferase (ALT) 62 H 7-40 U/L Alkaline Phosphatase 73 46-116 U/L Total Protein 6.6 5.7-8.2 g/dL Albumin 4.3 3.2-4.8 g/dL Beta HCG, Quantitative 2685.9 H 1.5-4.2 mIU/mL Influenza Type A Antigen Negative Negative Influenza Type B Antigen Negative Negative SARS-CoV-2 Antigen (Rapid) Negative NEGATIVE Urine Color Yellow Yellow Urine Clarity Turbid H Clear Urine pH 6.0 5.0-9.0 Urine Specific [place] 1.028 1.001-1.035 Urine Protein Trace H Negative Urine Ketones Negative Negative Urine Blood Negative Negative /uL Urine Nitrite Negative Negative Urine Bilirubin Negative Negative Urine Urobilinogen Normal Negative mg/dL Urine Leukocyte Esterase Negative Negative /uL Urine RBC 1 0 - 4 /hpf Urine Microscopic WBC 1 0-5 /HPF Urine Squamous Epithelial Cells Mod <5 /hpf Urine Bacteria Few H None Seen /hpf Urine Mucus Few None Seen Urine Glucose Normal Normal mg/dL Urine Opiates Screen Neg NEGATIVE Urine Fentanyl Screen Neg NEGATIVE Urine Barbiturates Screen Neg NEGATIVE Urine Phencyclidine Screen Neg NEGATIVE Urine Amphetamines Screen Neg NEGATIVE Urine Benzodiazepines Screen Neg NEGATIVE Urine Cocaine Screen Neg NEGATIVE Urine Cannabinoids Screen Pos NEGATIVE POC Glucose 87 70-106 mg/dl X-Ray, Labs, Meds, VS Comment This 34-year-old female presents to emergency room secondary to passing out for unknown duration yesterday. She continues to feel unwell today. As such, she presented here. Here, the patient was have dry mucous membranes otherwise normal exam. Labs labs, imaging and EKG were benign. However, secondary to unexplained syncopal episode yesterday, met the patient for further workup and management. Please note the patient was Time of 1ST Reevaluation: 08:44 Reevaluation 1ST: Unchanged Time of 2ND Reevaluation: 12:08 Reevaluation 2ND: Unchanged Patient Education/Counseling: Diagnosis, Treatment, Prognosis Family Education/Counseling: No Family Present Departure 1 Departure Time of Disposition: 12:08 Impression: Primary Impression: Additional Impression: Syncope and collapse Disposition: 09 ADMITTED INPATIENT Admit to: Tele Condition: Serious Critical Care Note Critical Care Time?: No Stability Stability form required: No I personally scribed for HARSHA SLAUGHTER MD ([email or web address]) on 12/30/24 at 08:40. Electronically submitted by Deidra Hi ([email or web address]). I personally scribed for HARSHA SLAUGHTER MD ([email or web address]) on 12/30/24 at 08:51. Electronically submitted by Deidra Hi ([email or web address]). I personally scribed for HARSHA SLAUGHTER MD ([email or web address]) on 12/30/24 at 08:52. Electronically submitted by Deidra Hi ([email or web address]). HARSHA SLAUGHTER MD Dec 30, 2024 08:40
[2024-12-30 09:27] LABS: Urine Bacteria FEW /hpf (None Seen); Urine Blood Negative /uL (Negative); Urine Clarity Turbid (Clear); Urine Color Yellow (Yellow); Urine Mucus FEW (None Seen); Urine Protein, UAD TRACE (Negative); Urine Specific Gravity 1.028 (1.001-1.035); Urine Squamous Epithelial Cell MOD /hpf (<5); Urine Urobilinogen Normal (Negative); Urine WBC 1 /HPF (0-5)
[2024-12-30 09:41] LABS: COVID19 ANTIGEN SOFIA FIA NEGATIVE (NEGATIVE)
[2024-12-30 09:42] LABS: Basophils # (auto) 0 10 ^3/uL (0-0.2); Basophils % (auto) 0.6 % (0.0-2.0); Eosinophils # (auto) 0.3 10 ^3/uL (0-0.8); Eosinophils % (auto) 3.7 % (0.0-7.0); Hematocrit 41.2 % (36.0-46.0); Hemoglobin 13.8 g/dL (12.2-16.2); Lymphocytes # (auto) 2.2 10 ^3/uL (0.4-5.4); Lymphocytes % (auto) 25.1 % (10.0-50.0); Mean Corpuscular Hemoglobin 30.6 pg (28.0-32.0); Mean Corpuscular Hgb Conc. 33.5 g/dL (32.0-36.0); Mean Corpuscular Volume 91.1 fL (80.0-100.0); Monocytes # (auto) 0.6 10 ^3/uL (0-1.3); Monocytes % (auto) 7.2 % (0.0-12.0); Neutrophils # (auto) 5.5 10 ^3/uL (1.6-8.6); Neutrophils % (auto) 63.4 % (37.0-80.0); Platelet Count (auto) 341 10^3/uL (140-450); Red Blood Cells 4.52 10^6/uL (4.0-5.20); Red Cell Distribution Width 13.6 % (11.8-14.3); White Blood Cell 8.6 10^3/uL (4.4-10.8)
[2024-12-30 09:42] LABS: Rapid Influenza A Negative (Negative); Rapid Influenza B Negative (Negative)
[2024-12-30 09:57] LABS: Albumin 4.3 g/dL (3.2-4.8); Alkaline Phosphatase 73 U/L (46-116); Anion Gap 6 (5-15); Aspartate Aminotransferase 20 U/L (13-40); BUN/Creatinine Ratio 12.7 (10.0-20.0); Carbon Dioxide 28 mmol/L (20-31); Chloride 106 mmol/L (98-107); Glucose 92 mg/dL (74-106); Potassium 3.5 mmol/L (3.5-5.1); Sodium 140 mmol/L (136-145)
[2024-12-30 09:58] LABS: Bilirubin, Total 0.4 mg/dL (0.2-1.0); Total Protein 6.6 g/dL (5.7-8.2)
[2024-12-30 10:03] LABS: Alanine Aminotransferase 62 U/L (7-40); Blood Urea Nitrogen 8 mg/dL (9-23)
[2024-12-30 12:04] LABS: Cannabinoid Screen, Urine Pos (NEGATIVE)
[2024-12-30 12:05] LABS: Amphetamine Screen, Urine Neg (NEGATIVE); Barbiturate Scree,Urine Neg (NEGATIVE); Benzodiazephine Screen, Urine Neg (NEGATIVE); Cocaine Screen, Urine Neg (NEGATIVE); Opiate Scree,Urine Neg (NEGATIVE); Phencyclidine Screen, Urine Neg (NEGATIVE)
[2024-12-30 12:56] VITALS: PULSE 76; RESP 16; O2SAT 97
--- NOTE | 2024-12-30 15:11 | DVHHP2 ---
Admitting Diagnosis: Syncope History of Present Illness 34 year old female presents to the ED with a chief complaint of syncope onset yesterday. Patient states she got up to use the bathroom when she was dizzy, ex perienced an unwitnessed syncope episode, woke up on the floor. Patient also she began experiencing sore throat, headache, nasal congestion, body aches this morning. Patient tested positive for an at home test yesterday, currently about 3-4 weeks . Upon ED arrival BS was 87, BP 104/63, HR 80, O2 sat 98%. PMHx kidney stones, UTIs. Denies blurry vision, nausea, vomiting, diarrhea, abdominal pain, chest pain, shortness of breath, dysuria. No other symptoms or modifying factors present at this time. 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 Family History Family History: Reviewed,noncontributory to illness Social History Smoker: Non-Smoker Alcohol: Denies ETOH Use Drugs: Denies Drug Use Lives In: Home Patient Family History: Diabetes mellitus G8 MOTHER FH: lupus G8 MOTHER Hypertension G8 MOTHER Allergies: Coded Allergies: NO KNOWN ALLERGIES (Unverified , 06/16/13) Home Meds Active Scripts Tramadol HCl (Tramadol HCl) 50 Mg Tab, 50 MG PO TIDP PRN for 5 Days, #15 TAB Prov:TRACI GALLARDO MD 11/14/24 Doxycycline Hyclate (DOXYCYCLINE HYCLATE) 100 Mg Tab, 1 TAB PO BID, #14 TAB Prov:TRACI GALLARDO MD 11/14/24 Reported Medications Trazodone Hcl (Trazodone Hcl) 50 Mg Tab, 1 TAB PO 11/12/24 Fluoxetine HCl (Fluoxetine HCl) 20 Mg Cap, 1 CAP PO DAILY 11/12/24 Vital Signs Vital Signs Date Time Temp Pulse Resp B/P (MAP) Pulse Ox O2 Delivery O2 Flow Rate FiO2 12/30/24 12:56 98.5 75 16 133/67 (89) 97 98.5 12/30/24 12:56 Room Air* 0 21 Physical Exam 34 years old woman, well nourished well developed. No apparent distress HEENT-atraumatic normocephalic Heart-regular rate and rhythm Lungs clear to auscultate bilaterally Abdomen soft nontender nondistended Musculoskeletal-no edema cyanosis Neuro-AO x3, no focal deficits Results Labs Test 12/30/24 09:03 12/30/24 08:35 12/30/24 08:05 12/30/24 07:57 Range/Units White Blood Count 8.6 4.4-10.8 10^3/uL Red Blood Count 4.52 4.0-5.20 10^6/uL Hemoglobin 13.8 12.2-16.2 g/dL Hematocrit 41.2 36.0-46.0 % Mean Corpuscular Volume 91.1 80.0-100.0 fL Mean Corpuscular Hemoglobin 30.6 28.0-32.0 pg Mean Corpuscular Hemoglobin Concent 33.5 32.0-36.0 g/dL Red Cell Distribution Width 13.6 11.8-14.3 % Platelet Count 341 140-450 10^3/uL Mean Platelet Volume 9.5 6.9-10.8 fL Neutrophils (%) (Auto) 63.4 37.0-80.0 % Lymphocytes (%) (Auto) 25.1 10.0-50.0 % Monocytes (%) (Auto) 7.2 0.0-12.0 % Eosinophils (%) (Auto) 3.7 0.0-7.0 % Basophils (%) (Auto) 0.6 0.0-2.0 % Neutrophils # (Auto) 5.5 1.6-8.6 10 ^3/uL Lymphocytes # (Auto) 2.2 0.4-5.4 10 ^3/uL Monocytes # (Auto) 0.6 0-1.3 10 ^3/uL Eosinophils # (Auto) 0.3 0-0.8 10 ^3/uL Basophils # (Auto) 0 0-0.2 10 ^3/uL Nucleated Red Blood Cells 0.0 % Sodium Level 140 136-145 mmol/L Potassium Level 3.5 3.5-5.1 mmol/L Chloride Level 106 98-107 mmol/L Carbon Dioxide Level 28 20-31 mmol/L Anion Gap 6 5-15 Blood Urea Nitrogen 8 L 9-23 mg/dL Creatinine 0.63 0.550-1.02 mg/dL Glomerular Filtration Rate Calc 118 >90 mL/min BUN/Creatinine Ratio 12.7 10.0-20.0 Serum Glucose 92 74-106 mg/dL Calcium Level 9.0 8.7-10.4 mg/dL Total Bilirubin 0.4 0.2-1.0 mg/dL Aspartate Amino Transferase (AST) 20 13-40 U/L Alanine Aminotransferase (ALT) 62 H 7-40 U/L Alkaline Phosphatase 73 46-116 U/L Total Protein 6.6 5.7-8.2 g/dL Albumin 4.3 3.2-4.8 g/dL Beta HCG, Quantitative 2685.9 H 1.5-4.2 mIU/mL Influenza Type A Antigen Negative Negative Influenza Type B Antigen Negative Negative SARS-CoV-2 Antigen (Rapid) Negative NEGATIVE Urine Color Yellow Yellow Urine Clarity Turbid H Clear Urine pH 6.0 5.0-9.0 Urine Specific [place] 1.028 1.001-1.035 Urine Protein Trace H Negative Urine Ketones Negative Negative Urine Blood Negative Negative /uL Urine Nitrite Negative Negative Urine Bilirubin Negative Negative Urine Urobilinogen Normal Negative mg/dL Urine Leukocyte Esterase Negative Negative /uL Urine RBC 1 0 - 4 /hpf Urine Microscopic WBC 1 0-5 /HPF Urine Squamous Epithelial Cells Mod <5 /hpf Urine Bacteria Few H None Seen /hpf Urine Mucus Few None Seen Urine Glucose Normal Normal mg/dL Urine Opiates Screen Neg NEGATIVE Urine Fentanyl Screen Neg NEGATIVE Urine Barbiturates Screen Neg NEGATIVE Urine Phencyclidine Screen Neg NEGATIVE Urine Amphetamines Screen Neg NEGATIVE Urine Benzodiazepines Screen Neg NEGATIVE Urine Cocaine Screen Neg NEGATIVE Urine Cannabinoids Screen Pos NEGATIVE POC Glucose 87 70-106 mg/dl Primary Diagnosis Syncope trimester one Plan Patient states that she just found out she was . Her vitamins Neurology consult for syncope obgyn consult to [facility] for baby Brain MRI Carotid Doppler Cardiogram of the heart Orthostatic vitals Neuro check per floor protocol Full code Regular diet Lovenox for DVT prophylaxis No GI prophylaxis needed Plan discussed with: Patient Problems List: (1) Early stage of Status: Acute (2) Syncope and collapse Status: Acute Date of Service: Dec 30, 2024 Billing Provider: KARLI GRAHAM MD Common Visit Codes: [id number] INP/OBS CARE (HIGH) KARLI GRAHAM MD Dec 30, 2024 15:11
[2024-12-30] MEDS ORDERED: DOCUSATE SOD 100 MG CAP PO PRN (15:15)
--- NOTE | 2024-12-30 15:56 | DVH ---
PROCEDURE: US CAROTID DUPLX W COLOR DOP 12/30/2024 03:29 PM INDICATION: syncope COMPARISON: None TECHNIQUE: Real-time grayscale and color Doppler images of the neck arteries were obtained with spect ral analysis performed. FINDINGS: RIGHT: No significant atherosclerotic plaque identified in the carotid. Normal spectral waveforms are seen. ICA peak systolic velocity: 122 cm/s ICA end-diastolic velocity: 87 cm/s ICA/CCA ratios: 1.1 LEFT: No significant atherosclerotic plaque identified in the carotid. Normal spectral waveforms are seen. ICA peak systolic velocity: 125 cm/s ICA end-diastolic velocity: 27 cm/s ICA/CCA ratios: 1.1 VERTEBRAL ARTERIES: Normal antegrade flow is seen bilaterally. Normal spectral waveforms. IMPRESSION: 1. No hemodynamically significant carotid artery stenosis identified bilaterally. Reference: Radiology 2003; 229:[id number] Normal ICA PSV is <125 cm/sec and no plaque or intimal thickening is visible sonographically additional criteria include ICA/CCA PSV ratio <2.0 and ICA EDV <40 cm/sec <50% ICA stenosis ICA PSV is <125 cm/sec and plaque or intimal thickening is visible sonographically additional criteria include ICA/CCA PSV ratio <2.0 and ICA EDV <40 cm/sec 50-69% ICA stenosis ICA PSV is 125-230 cm/sec and plaque is visible sonographically additional criteria include ICA/CCA PSV ratio of 2.0-4.0 and ICA EDV of 40-100 cm/sec 70% ICA stenosis but less than near occlusion ICA PSV is >230 cm/sec and visible plaque and luminal narrowing are seen at leyva-scale and color Dopp ler ultrasound (the higher the Doppler parameters lie above the threshold of 230 cm/sec, the greater the likelihood of severe disease) additional criteria include ICA/CCA PSV ratio >4 and ICA EDV >100 cm/sec
--- NOTE | 2024-12-30 16:02 | DVH ---
EXAM: US First Trimester , Transabdominal and Transvaginal CLINICAL INDICATION: pt had syncope, eval trimester fetus status TECHNIQUE: Real-time transabdominal and transvaginal obstetrical ultrasound of the maternal pelvis a nd a first trimester with image documentation. Transvaginal imaging was used for better ev aluation of the fetus and adnexa. COMPARISON: None FINDINGS: GESTATION: Questionable gestational sac noted measuring up to 0.4 cm. Yolk sac not visualized. No pole visualized. PLACENTA/AMNIOTIC FLUID: Cannot be adequately evaluated due to the early gestational age. UTERUS/CERVIX: Unremarkable. No myometrial mass. The uterus measures 9.9 x 5.4 x 4.2 cm. The end ometrial stripe measures 1.6 cm in thickness. OVARIES: 1.5 left ovarian cyst. No mass. The right ovary measures 2.9 x 1.8 x 1.7 cm. The left o vary measures 2.4 x 1.9 x 2.3 cm. FREE FLUID: No free fluid. OTHER FINDINGS: . . . . IMPRESSION: Questionable gestational sac within the endometrium. No heart tone or pole visualized. R epeat pelvic ultrasound in 10-14 days is recommended as well as following serial beta hCG level.
[2024-12-30 16:08] VITALS: BP 106/47; PULSE 83; RESP 18; TEMP 98.1; O2SAT 99
[2024-12-30 16:30] VITALS: BP 106/47; PULSE 83; RESP 18; TEMP 98.1; O2SAT 99
[2024-12-30] MEDS: LACTATED RINGER'S 1,000 ML IV ONE (17:32)
--- NOTE | 2024-12-30 17:58 | DVH ---
EXAM: MRI BRAIN HEAD WO CONTRAST HISTORY: syncope COMPARISON: None TECHNIQUE: MRI was performed utilizing multiple appropriate imaging planes and pulse sequences. FINDINGS: SUPRATENTORIAL REGION: No evidence for acute ischemia or intracranial hemorrhage. POSTERIOR FOSSA: Unremarkable. BRAINSTEM: Unremarkable. SELLAR/SUPRASELLAR REGION: Unremarkable. VENTRICLES, CISTERNS, SULCI: Age-appropriate. ORBITS: Unremarkable. PARANASAL SINUSES: Mucous retention cysts are seen in the bilateral maxillary sinuses. MASTOID AIR CELLS: Unremarkable. VASCULATURE: Unremarkable. BONES/ SOFT TISSUES: Unremarkable. OTHER: None. IMPRESSION: 1. No acute intracranial process identified. 2. Chronic sinusitis mucous retention cysts of the bilateral maxillary sinuses.
[2024-12-30 19:36] VITALS: BP 130/81; PULSE 79; RESP 18; TEMP 98.2; O2SAT 98
[2024-12-30] MEDS: SODIUM CHLOR 0.9% PF (SALINE LOCK) 10ML VIAL/SYR IV SCH (22:08)
[2024-12-30] MEDS: ACETAMINOPHEN 325 MG TAB PO PRN (22:15)
[2024-12-31] VITALS (7 sets, daily range): BP systolic 97–115; BP diastolic 47–70; PULSE 68–92; RESP 16–18; TEMP 97.7–98.4; O2SAT 96–99
[2024-12-31 06:12] LABS: Basophils # (auto) 0.1 10 ^3/uL (0-0.2); Basophils % (auto) 0.7 % (0.0-2.0); Eosinophils # (auto) 0.4 10 ^3/uL (0-0.8); Eosinophils % (auto) 5.2 % (0.0-7.0); Hematocrit 37.3 % (36.0-46.0); Hemoglobin 12.8 g/dL (12.2-16.2); Lymphocytes # (auto) 2.8 10 ^3/uL (0.4-5.4); Mean Corpuscular Hemoglobin 31.1 pg (28.0-32.0); Mean Corpuscular Hgb Conc. 34.3 g/dL (32.0-36.0); Mean Corpuscular Volume 90.8 fL (80.0-100.0); Monocytes # (auto) 0.6 10 ^3/uL (0-1.3); Neutrophils # (auto) 3.9 10 ^3/uL (1.6-8.6); Neutrophils % (auto) 50.1 % (37.0-80.0); Platelet Count (auto) 291 10^3/uL (140-450); Red Blood Cells 4.11 10^6/uL (4.0-5.20); Red Cell Distribution Width 13.6 % (11.8-14.3); White Blood Cell 7.8 10^3/uL (4.4-10.8)
[2024-12-31 06:47] LABS: Albumin 3.4 g/dL (3.2-4.8); Alkaline Phosphatase 59 U/L (46-116); Anion Gap 10 (5-15); Aspartate Aminotransferase 32 U/L (13-40); BUN/Creatinine Ratio 13.8 (10.0-20.0); Calcium 8.9 mg/dL (8.7-10.4); Carbon Dioxide 24 mmol/L (20-31); Chloride 105 mmol/L (98-107); Glucose 91 mg/dL (74-106); Potassium 3.5 mmol/L (3.5-5.1); Sodium 139 mmol/L (136-145)
[2024-12-31 06:48] LABS: Bilirubin, Total 0.4 mg/dL (0.2-1.0)
[2024-12-31 06:52] LABS: Alanine Aminotransferase 51 U/L (7-40); Blood Urea Nitrogen 8 mg/dL (9-23); Total Protein 5.4 g/dL (5.7-8.2)
[2024-12-31] MEDS: ENOXAPARIN SOD 40 MG/0.4 ML SYRINGE SC SCH (09:06)
--- NOTE | 2024-12-31 13:41 | DVHINCON2 ---
DATE OF CONSULTATION: 12/31/2024 REASON FOR CONSULTATION: Rule out abnormal . HISTORY OF PRESENT ILLNESS: The patient is a 34-year-old female 6 para 5 brought in by ambulance for syncope. The patient was in the bathroom, experienced syncopal episode, and woke up on the floor. She denies having any vaginal bleeding or abdominal pain. Her last menstrual period was 11/24/2024. Her beta-hCG was 2685 and ultrasound reveals questionable gestational sac, no pole, ovaries and tubes appear to be normal. Currently, the patient is not having any abdominal pain or vaginal bleeding. Her last Pap was few years ago. She has an appointment with her OB on Thursday. PAST MEDICAL HISTORY: Kidney stone. PAST SURGICAL HISTORY: x5. SOCIAL HISTORY: She quit smoking. FAMILY HISTORY: None. OBSTETRIC/GYNECOLOGIC HISTORY: Five sections. ALLERGIES: No known drug allergies. REVIEW OF SYSTEMS: Consistent with HPI. PHYSICAL EXAMINATION: VITAL SIGNS: Stable, afebrile. HEENT: Within normal limits. CARDIOVASCULAR: Regular rate and rhythm. LUNGS: Clear to auscultation. BREASTS: Symmetrical. No masses. ABDOMEN: Obese. PELVIC: External genitalia within normal limits. Vagina normal. Cervix grossly normal appearing. No bleeding noted. Adnexa nonpalpable. EXTREMITIES: No clubbing, cyanosis, or edema. IMPRESSION: * Dizziness probably secondary to , resolved. * First trimester . Viability needs to be established with repeat scan and beta-hCG quantitative. * Morbid obesity. RECOMMENDATION: * The patient will follow up outpatient on Thursday. I have advised the patient to get another beta-hCG quantitative and sono to establish viability of . * Encouraged the patient to be well hydrated and avoid too much standing or sitting. * Recommend follow up outpatient with OB. We will sign off. Thank you very much for this consultation. DO VENU Villafana TID: [id number] RECEIPT: [id number]
[2024-12-31] MEDS: ACETAMINOPHEN 500 MG TAB or CAP PO ONE (15:08)
--- NOTE | 2024-12-31 16:37 | DVHDS2 ---
Discharge Summary Date of Admission Dec 30, 2024 at 15:05 Date of Discharge: Dec 31, 2024 Labs/Diagnostic Data: Laboratory Results Test 12/31/24 04:45 12/30/24 09:03 12/30/24 08:35 12/30/24 08:05 White Blood Count 7.8 10^3/uL (4.4-10.8) Red Blood Count 4.11 10^6/uL (4.0-5.20) Hemoglobin 12.8 g/dL (12.2-16.2) Hematocrit 37.3 % (36.0-46.0) Mean Corpuscular Volume 90.8 fL (80.0-100.0) Mean Corpuscular Hemoglobin 31.1 pg (28.0-32.0) Mean Corpuscular Hemoglobin Concent 34.3 g/dL (32.0-36.0) Red Cell Distribution Width 13.6 % (11.8-14.3) Platelet Count 291 10^3/uL (140-450) Mean Platelet Volume 9.7 fL (6.9-10.8) Neutrophils (%) (Auto) 50.1 % (37.0-80.0) Lymphocytes (%) (Auto) 36.0 % (10.0-50.0) Monocytes (%) (Auto) 8.0 % (0.0-12.0) Eosinophils (%) (Auto) 5.2 % (0.0-7.0) Basophils (%) (Auto) 0.7 % (0.0-2.0) Neutrophils # (Auto) 3.9 10 ^3/uL (1.6-8.6) Lymphocytes # (Auto) 2.8 10 ^3/uL (0.4-5.4) Monocytes # (Auto) 0.6 10 ^3/uL (0-1.3) Eosinophils # (Auto) 0.4 10 ^3/uL (0-0.8) Basophils # (Auto) 0.1 10 ^3/uL (0-0.2) Nucleated Red Blood Cells 0.0 % Sodium Level 139 mmol/L (136-145) Potassium Level 3.5 mmol/L (3.5-5.1) Chloride Level 105 mmol/L (98-107) Carbon Dioxide Level 24 mmol/L (20-31) Anion Gap 10 (5-15) Blood Urea Nitrogen 8 mg/dL (9-23) Creatinine 0.58 mg/dL (0.550-1.02) Glomerular Filtration Rate Calc 120 mL/min (>90) BUN/Creatinine Ratio 13.8 (10.0-20.0) Serum Glucose 91 mg/dL (74-106) Calcium Level 8.9 mg/dL (8.7-10.4) Total Bilirubin 0.4 mg/dL (0.2-1.0) Aspartate Amino Transferase (AST) 32 U/L (13-40) Alanine Aminotransferase (ALT) 51 U/L (7-40) Alkaline Phosphatase 59 U/L (46-116) Total Protein 5.4 g/dL (5.7-8.2) Albumin 3.4 g/dL (3.2-4.8) Beta HCG, Quantitative 2685.9 mIU/mL (1.5-4.2) Influenza Type A Antigen Negative (Negative) Influenza Type B Antigen Negative (Negative) SARS-CoV-2 Antigen (Rapid) Negative (NEGATIVE) Urine Color Yellow (Yellow) Urine Clarity Turbid (Clear) Urine pH 6.0 (5.0-9.0) Urine Specific [place] 1.028 (1.001-1.035) Urine Protein Trace (Negative) Urine Ketones Negative (Negative) Urine Blood Negative /uL (Negative) Urine Nitrite Negative (Negative) Urine Bilirubin Negative (Negative) Urine Urobilinogen Normal mg/dL (Negative) Urine Leukocyte Esterase Negative /uL (Negative) Urine RBC 1 /hpf (0 - 4) Urine Microscopic WBC 1 /HPF (0-5) Urine Squamous Epithelial Cells Mod /hpf (<5) Urine Bacteria Few /hpf (None Seen) Urine Mucus Few (None Seen) Urine Glucose Normal mg/dL (Normal) Urine Opiates Screen Neg (NEGATIVE) Urine Fentanyl Screen Neg (NEGATIVE) Urine Barbiturates Screen Neg (NEGATIVE) Urine Phencyclidine Screen Neg (NEGATIVE) Urine Amphetamines Screen Neg (NEGATIVE) Urine Benzodiazepines Screen Neg (NEGATIVE) Urine Cocaine Screen Neg (NEGATIVE) Urine Cannabinoids Screen Pos (NEGATIVE) Test 12/30/24 07:57 POC Glucose 87 mg/dl (70-106) Other Laboratory Tests 12/31/24 04:45 Final Diagnosis/Problems List 1. Dizziness resolved 2. 3. Left ear pain no abnormality on otoscopic examination , outpatient follow up with ENT if needed Discharge Disposition: Home Discharge Instruct/Medications Diet: Cardiac 2g Na,low cholest Activity: No Restrictions, As Tolerated Follow Up/Referral: Follow up with the PCP in one week Follow up with Dr. Garcia , surgical asst as scheduled Medications: Resume home meds Discharge Statement: "Patient was advised to return to the ER or call 911 if any headaches, dizziness, shortness of breath, chest pain, abdominal pain, bleeding, fevers, or worsening of medical condition. Patient was counseled about treatment plan, medications, possible side effects, patientverbalized understanding. All questions were answered to the best of my ability. This discharge took greater then 30 minutes in planning, reviewing documentation, counseling the patient, and discussing with other team members." ASSESSMENT ASSESSMENT Assessment 1. Dizziness resolved 2. 3. Left ear pain no abnormality on otoscopic examination , outpatient follow up with ENT if needed WILLOW WYLIE MD Dec 31, 2024 16:36
--- NOTE | 2024-12-31 19:09 | DVHSR ---
APPROVED REPORT EXAM: Two-dimensional and M-mode echocardiogram with Doppler and color Doppler. Blood Pressure: 109/67 mmHg INDICATION Syncope RISK FACTORS Height: 5'3, Weight: 190 DIMENSIONS LVDd4.5 (3.8-5.7cm)LA (2D)3.9 (1.9-4.0cm)Aortic Root2.7 (2.0-3.7cm) LVDs2.8 (2.5-4.0cm)LA (MM) (1.9-4.0cm)Aortic Cusp Exc1.4 (1.5-2.0cm) EF (%) 60.0 (55-70%)Rt. Atrium3.7 (1.9-4.0cm)Asc. Aorta cm IVSd0.7 (0.7-1.1cm)RV (D)3.7 (1.8-2.4cm) PWd1.2 (0.7-1.1cm) Mitral Valve MitralMitral Stenosis E wave1.22m/sMV Mean GR.mmHg A wave0.69m/sMV Peak GR.mmHg E/A ratio1.82D MVAcm2 DECEL [id number] 1/2 Timems Aortic Valve Aortic ValveAortic Stenosis V11.51m/Dimitrios Mean GR.7mmHg V21.83m/Dimitrios Peak GR.13mmHg LVOT Diameter2.2 (1.8-2.4cm)Doppler AVA3.14cm2 Pulmonic Valve V21.49m/s Tricuspid Valve TR Velocity2.29m/s [id number] LEFT VENTRICLE The left ventricle is normal size. There is normal left ventricular wall thickness. The left ventricle is normal in structure and function, LVEF 65%. Normal diastolic function. Normal wall motion. RIGHT VENTRICLE The right ventricle is normal size. The right ventricular systolic function is normal. ATRIA The left atrial size is normal. The right atrium size is normal. MITRAL VALVE The mitral valve is grossly normal. Mitral regurgitation is trace. PULMONIC VALVE The pulmonic valve is not well visualized. TRICUSPID VALVE The tricuspid valve is grossly normal. There is trace to mild tricuspid regurgitation. AORTIC VALVE The aortic valve is trileaflet. There is trace to mild aortic regurgitation. GREAT VESSELS The aortic root is normal size. PERICARDIAL EFFUSION No pericardial effusion. Conclusion The left ventricle is normal size. There is normal left ventricular wall thickness. The left ventricl e is normal in structure and function, LVEF 65%. Normal diastolic function. Normal wall motion. The right ventricular systolic function is normal. The left and right atrial size is normal. No significant valvular abnormalities. No pericardial effusion.
== END 2024-12-31 19:20 | disposition home or self-care (01) | DRG 566 ==
LOC: ER 07:39 → TELE 15:05 → TELE-WESTW 19:36
PROVIDERS: ADMIT Internal Medicine; ATTEND Internal Medicine
DX: O26.891 Other specified pregnancy related conditions, first trimester (principal); E66.01 Morbid (severe) obesity due to excess calories; H92.02 Otalgia, left ear; O99.211 Obesity complicating pregnancy, first trimester; Z20.822 Contact with and (suspected) exposure to COVID-19; Z79.899 Other long term (current) drug therapy; Z3A.01 Less than 8 weeks gestation of pregnancy; Z82.49 Family history of ischemic heart disease and other diseases of the circulatory system; Z87.442 Personal history of urinary calculi; Z87.891 Personal history of nicotine dependence
CPT/HCPCS: 36415; 70551; 76801; 76817; 80053; 80307; 81001; 82962; 84702; 85025; 87426; 87804; 93306; 93886; 96360; G0378

== ENCOUNTER 2025-01-09 09:01 | Emergency (ER) | payer MEDICAID ==
[~2025-01-09] VITALS: Ht 160 cm; Wt 84.6 kg
[2025-01-09 09:33] LABS: Urine Bacteria None Seen /hpf (None Seen)
[2025-01-09 09:55] LABS: Basophils # (auto) 0 10 ^3/uL (0-0.2); Basophils % (auto) 0.6 % (0.0-2.0); Eosinophils # (auto) 0 10 ^3/uL (0-0.8); Hematocrit 41.6 % (36.0-46.0); Hemoglobin 14.1 g/dL (12.2-16.2); Lymphocytes # (auto) 0.9 10 ^3/uL (0.4-5.4); Lymphocytes % (auto) 16.4 % (10.0-50.0); Mean Corpuscular Hemoglobin 30.3 pg (28.0-32.0); Mean Corpuscular Hgb Conc. 33.9 g/dL (32.0-36.0); Mean Corpuscular Volume 89.5 fL (80.0-100.0); Monocytes # (auto) 0.7 10 ^3/uL (0-1.3); Monocytes % (auto) 12.7 % (0.0-12.0); Neutrophils # (auto) 3.6 10 ^3/uL (1.6-8.6); Neutrophils % (auto) 69.3 % (37.0-80.0); Platelet Count (auto) 319 10^3/uL (140-450); Red Blood Cells 4.65 10^6/uL (4.0-5.20); Red Cell Distribution Width 13.6 % (11.8-14.3); White Blood Cell 5.2 10^3/uL (4.4-10.8)
[2025-01-09 10:01] LABS: Chloride 101 mmol/L (98-107)
[2025-01-09 10:02] LABS: Anion Gap 8 (5-15); Calcium 9.6 mg/dL (8.7-10.4); Carbon Dioxide 26 mmol/L (20-31)
[2025-01-09 10:03] LABS: Potassium 3.4 mmol/L (3.5-5.1); Sodium 135 mmol/L (136-145)
[2025-01-09 10:04] LABS: Urine Blood Negative /uL (Negative); Urine Clarity Clear (Clear); Urine Color Yellow (Yellow); Urine Mucus FEW (None Seen); Urine Protein, UAD Negative (Negative); Urine Squamous Epithelial Cell FEW /hpf (<5); Urine Urobilinogen Normal (Negative); Urine WBC 1 /HPF (0-5); Urine pH 6.5 (5.0-9.0)
[2025-01-09 10:07] LABS: BUN/Creatinine Ratio 6.9 (10.0-20.0); Glucose 92 mg/dL (74-106)
[2025-01-09 10:39] LABS: Blood Urea Nitrogen 5 mg/dL (9-23)
[2025-01-09] MEDS: ONDANSETRON HCL 4 MG/2 ML VIAL IV ONE (11:18)
[2025-01-09] MEDS: ACETAMINOPHEN IV 1000 MG/100ML (10MG/ML) IV STA (11:18)
[2025-01-09] MEDS: SODIUM CHLORIDE 0.9% 1,000 ML IV ONE (11:18)
--- NOTE | 2025-01-09 11:20 | ED.PDOC ---
GI ASSESSMENT HPI Comments 34 year old female presents to the ED with chief complaint of N/V/D during . Patient reports that she is currently 6 weeks according to her LMP and has been experiencing N/V/D with associated cough and congestion since 4 days ago. Patient denies any abdominal pain, dizziness, headache, fever, chills, or dysuria. Chief Complaint: Nausea/Vomiting Time Seen by MD: 11:17 Primary Care Provider: none Reviewed Notes: Nurses Notes, Medications, Allergies Allergies: Coded Allergies: NO KNOWN ALLERGIES (Unverified , 06/16/13) Home Meds No Active Prescriptions or Reported Meds Information Source: Patient Mode of Arrival: Ambulatory Timing: Days Duration: Since onset Prehospital treatment: None Quality: None Vomitus: Watery Stool: Watery Severity: Moderate Recent: None Recent Hx of: Current Pain Location: None Modifying Factors: Nothing Associated sign and symptoms: Nausea, Vomiting, Diarrhea Past Medical History PAST MEDICAL HISTORY: Kidney Stones, UTI'S 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 History Family History Family History: Reviewed,noncontributory to illness Social History Smoker: Non-Smoker Alcohol: Denies ETOH Use Drugs: Denies Drug Use Lives In: Home Constitutional: denies: chills, diaphoresis, fatigue, fever, malaise, sweats, weakness, others EENTM: reports: nose congestion; denies: blurred vision, double vision, ear bleeding, ear discharge, ear drainage, ear pain, ear ringing, eye pain, eye redness, hearing loss, mouth pain, mouth swelling, nasal discharge, nose ble eding, nose pain, photophobia, tearing, throat pain, throat swelling, voice changes, others Respiratory: reports: cough; denies: hemoptysis, orthopnea, SOB at rest, shortness of breath, SOB with excertion, stridor, wheezing, others Cardiovascular: denies: chest pain, dizzy spells, diaphoresis, Dyspnea on exertion, edema, irregular heart beat, left arm pain, lightheadedness, palpitations, PND, syncope, others Gastrointestinal: reports: diarrhea, nausea, vomiting; denies: abdomen distend ed, abdominal pain, blood streaked bowels, constipated, dysphagia, difficulty swallowing, hematemesis, melena, poor appetite, poor fluid intake, rectal bleeding, rectal pain, others Genitourinary: reports: ; denies: abnormal vagina bleeding, burning, dyspareunia, dysuria, flank pain, frequency, hematuria, incontinence, pain, vagina discharge, urgency, others Neurological: denies: dizziness, fainting, headache, left sided numbness, left sided weakness, numbness, paresthesia, pre-existing deficit, right sided numbness, right sided weakness, seizure, speech problems, tingling, tremors, weakness, others Musculoskeletal: denies: back pain, gout, joint pain, joint swelling, muscle pain, muscle stiffness, neck pain, others Integumetry: denies: bruises, change in color, change in hair/nails, dryness, laceration, lesions, lumps, rash, wounds, others Allergic/Immunocompromised: denies: Difficulty Healing, Frequent Infections, Hives, Itching, others Hematologic/Lymphatic: denies: anemia, blood clots, easy bleeding, easy bruising, swollen glands, others Endocrine: denies: excessive hunger, excessive sweating, excessive thirst, excessive urination, flushing, intolerance to cold, intolerance to heat, unexplained weight gain, unexplained weight loss, others Psychiatric: denies: anxiety, bipolar disorder, depression, hopeless, panic disorder, schizophrenia, sleepless, suicidal, others All Other Systems: Reviewed and Negative Physical Exam General Appearance: No Apparent Distress, Normal HEENT: Normal ENT Inspection, PERRL/EOMI, Pharynx Normal, TMs Normal, Other (Nasal congestion) Neck: Full Range of Motion, Non-Tender, Normal, Normal Inspection Respiratory: Chest Non-Tender, Lungs Clear, No Accessory Muscle Use, No Respiratory Distress, Normal Breath Sounds Cardiovascular: No Edema, No JVD, No Murmur, No Gallop, Normal Peripheral Pulses, Regular Rate/Rhythm Breast Exam: Deferred Gastrointestinal: No Organomegaly, Non Tender, No Pulsatile Mass, Normal Bowel Sounds, Soft Genitalia: Deferred Pelvic: Deferred Rectal: Deferred Extremities: No calf tenderness, Normal capillary refill, Normal inspection, Normal range of motion, Non-tender, No pedal edema Musculoskeletal : Apperance: Normal Neurologic: Alert, adult neuropsychologist II-XII nml as Tested, No Motor Deficits, Normal Affect, Normal Mood, No Sensory Deficits Cerebellar Function: Normal Reflexes: Normal Skin: Dry, Normal Color, Warm Lymphatic: No Adenopathy Was a procedure done? Was a procedure done?: No GI differential Dx Differential Diagnosis: N/A Other Differential Diagnosis Viral syndrome, hyperemesis gravidarum. X-Ray, Labs, Meds, VS Vital Signs Date Time Temp Pulse Resp B/P (MAP) Pulse Ox O2 Delivery O2 Flow Rate FiO2 01/09/25 11:18 97.7 80 18 117/79 (92) 98 97.7 01/09/25 11:18 80 18 98 Room Air 01/09/25 09:14 98.3 86 18 101/67 (78) 100 Lab Test 01/09/25 09:40 01/09/25 09:12 Range/Units White Blood Count 5.2 4.4-10.8 10^3/uL Red Blood Count 4.65 4.0-5.20 10^6/uL Hemoglobin 14.1 12.2-16.2 g/dL Hematocrit 41.6 36.0-46.0 % Mean Corpuscular Volume 89.5 80.0-100.0 fL Mean Corpuscular Hemoglobin 30.3 28.0-32.0 pg Mean Corpuscular Hemoglobin Concent 33.9 32.0-36.0 g/dL Red Cell Distribution Width 13.6 11.8-14.3 % Platelet Count 319 140-450 10^3/uL Mean Platelet Volume 9.5 6.9-10.8 fL Neutrophils (%) (Auto) 69.3 37.0-80.0 % Lymphocytes (%) (Auto) 16.4 10.0-50.0 % Monocytes (%) (Auto) 12.7 H 0.0-12.0 % Eosinophils (%) (Auto) 1.0 0.0-7.0 % Basophils (%) (Auto) 0.6 0.0-2.0 % Neutrophils # (Auto) 3.6 1.6-8.6 10 ^3/uL Lymphocytes # (Auto) 0.9 0.4-5.4 10 ^3/uL Monocytes # (Auto) 0.7 0-1.3 10 ^3/uL Eosinophils # (Auto) 0 0-0.8 10 ^3/uL Basophils # (Auto) 0 0-0.2 10 ^3/uL Nucleated Red Blood Cells 0.0 % Sodium Level 135 L 136-145 mmol/L Potassium Level 3.4 L 3.5-5.1 mmol/L Chloride Level 101 98-107 mmol/L Carbon Dioxide Level 26 20-31 mmol/L Anion Gap 8 5-15 Blood Urea Nitrogen 5 L 9-23 mg/dL Creatinine 0.72 0.550-1.02 mg/dL Glomerular Filtration Rate Calc 111 >90 mL/min BUN/Creatinine Ratio 6.9 L 10.0-20.0 Serum Glucose 92 74-106 mg/dL Calcium Level 9.6 8.7-10.4 mg/dL Urine Color Yellow Yellow Urine Clarity Clear Clear Urine pH 6.5 5.0-9.0 Urine Specific [place] 1.020 1.001-1.035 Urine Protein Negative Negative Urine Ketones 1+ H Negative Urine Blood Negative Negative /uL Urine Nitrite Negative Negative Urine Bilirubin Negative Negative Urine Urobilinogen Normal Negative mg/dL Urine Leukocyte Esterase Negative Negative /uL Urine RBC None seen 0 - 4 /hpf Urine Microscopic WBC 1 0-5 /HPF Urine Squamous Epithelial Cells Few <5 /hpf Urine Bacteria None seen None Seen /hpf Urine Mucus Few None Seen Urine Glucose Normal Normal mg/dL Current Medications Medications (Trade) Dose Ordered Sig/Tacho Route Start Time Stop Time Status Last Admin Sodium Chloride 1,000 ml @ 1,000 mls/hr Q1H ONCE IV 01/09/25 09:30 01/09/25 10:29 DC 01/09/25 11:18 Ondansetron HCl (Zofran) 4 mg ONCE ONCE IV 01/09/25 09:30 01/09/25 09:31 DC 01/09/25 11:18 Acetaminophen (Ofirmev) 1,000 mg DAILY STAT IV 01/09/25 09:20 01/09/25 09:22 DC 01/09/25 11:18 Time of 1ST Reevaluation: 12:17 Reevaluation 1ST: Unchanged Patient Education/Counseling: Diagnosis, Treatment Family Education/Counseling: No Family Present Additional Information I reviewed the following notes from patient's past medical encounters: 12/30/24 for syncope The following tests were ordered, and results were reviewed by me: UA, CBC, CMP I reviewed and agreed with the following test results read by other providers: None Additional Information was gathered from interviewing the following independent historians: None I discussed treatment and results with medical personnel. Departure 1 Departure Time of Disposition: 14:22 (Patient likely with gastroenteritis. We will discharge patient with outpatient follow up) Impression: Primary Impression: Viral syndrome Additional Impression: Gastroenteritis Disposition: HOME / SELF CARE / HOMELESS Condition: Stable Additional Instructions: You likely have gastroenteritis. You can take Tylenol as needed pain. It is important to stay well hydrated and well rested. This usually resolves within 1 week. If your symptoms worsen or you have any other concerns please return to the ER. e-Prescriptions No Active Prescriptions or Reported Meds Discharged With: Self Critical Care Note Critical Care Time?: No Stability Stability form required: No Heart Score Heart Score: Heart Score Response (Comments) Value History N/A 0 EKG N/A 0 Age N/A 0 Risk Factors N/A 0 Troponin N/A 0 Total 0 I personally scribed for GRAYSON SELLERS MD ([email or web address]) on 01/09/25 at 11:20. Electronically submitted by Miguel Neal [email or web address]). GRAYSON SELLERS MD Jan 09, 2025 11:20
[2025-01-09 14:37] VITALS: BP 109/58; PULSE 59; RESP 16; TEMP 98.7; O2SAT 99
== END 2025-01-09 14:39 | disposition home or self-care (01) ==
LOC: ER 09:01
DX: O98.511 Other viral diseases complicating pregnancy, first trimester (principal); B34.9 Viral infection, unspecified; K52.9 Noninfective gastroenteritis and colitis, unspecified; Z3A.01 Less than 8 weeks gestation of pregnancy
CPT/HCPCS: 36415; 80048; 81001; 85025; 96361; 96374; 96375; 99284; J2405; J7030; J0131

== ENCOUNTER 2025-03-25 12:36 | Emergency (ER) | payer MEDICAID ==
[~2025-03-25] VITALS: Ht 160 cm; Wt 82.4 kg
--- NOTE | 2025-03-25 13:17 | ED.PDOC ---
RESIDENT CARE PROVIDER HPI Comments Rg HPI: Poor Historian. 34-year-old female presents to emergency department for evaluation of three day history of nonbilious nonbloody nausea and vomiting. It is yellow in color. Patient has associated mild generalized abdominal cramps. Patient is 17 weeks gestation seen her OB Gyne doctor four days ago prior to the onset of her symptoms. She was prescribed Reglan 10 mg for nausea vomiting . She said she tried it but it is not helping much. Past Medical History: anxiety Past Surgical History: 5 C-sections Vitals: temperature of 98.9F, pulse of 82, respiratory rate of 18, blood pressure of 148/60, and a SpO2 of 95%RA REVIEW OF SYSTEMS: CONSTITUTIONAL: Denies acute: fever, diaphoresis, chills, generalized weakness. HEAD: Denies acute: headache, photophobia Eyes: Denies acute: Double vision, vision loss, eye pain, eye discharge. EARS: Denies acute: tinnitus, hearing loss, ear discharge, ear pain, THROAT: Denies acute: sore throat, swelling, difficulty swallowing , pain with swallowing, change in voice. NECK: Denies acute: neck pain, neck swelling, stiff neck. HEART: Denies acute : chest pain, palpitations, LUNGS: Denies acute: SOB, wheezing, cough, hemoptysis ABDOMEN: Denies acute: diarrhea, melena , hematemesis, hematochezia SKIN: Denies acute: rash, redness, lesions, itchiness. EXTREMITIES: Denies acute: calf pain, numbness, tingling, weakness, denies pain in extremity. Denies acute: Low back pain. Neuro: Denies acute: focal neurological deficit, motor or sensory focal neurological deficit, tremors, seizure like activity, confusion, dizziness, change in mental status, loss of bowel or bladder function, cauda equina like symptoms. : Denies acute: dysuria, hematuria, flank pain, increase in urinary frequency. PSYCH: Denies acute: hallucination, suicidal ideation, homicidal ideation. FEMALE: Denies acute: abnormal vaginal bleeding, foul odor, unusual discharge. PHYSICAL EXAM: General: ---mild-----acute distress, awake and alert. Head: normocephalic, atraumatic. Neck: supple, trachea is midline, no swelling. Throat: Normal phonation. Eyes:, no erythema, no purulent discharge, no proptosis, no icterus. Heart: regular rate, regular rhythm, no significant murmur appreciated. Lungs: no apparent respiratory distress, Able to speak in full sentences. No wheezing, no rhonchi, no crackles. No stridors Clear to auscultation bilaterally. Abdomen: non tender to palpation, non distended, soft, no guarding, no rebound, + bowel sounds. Neuro: Awake, Alert, oriented to name, self, situation, follows commands GCS=15. Speech is normal. Skin: no petechia, no purpura, no cyanosis, non-pale, not jaundice. Lower extremities: --no - Pitting edema no deformity, no focal swelling, no calf TTP. Makes eye contact. moves all four extremities. Face: no apparent facial droop. Ambulating in the ED independently. ED COURSE: Chief Complaint: Nausea/Vomiting Time Seen by MD: 12:40 Allergies: Coded Allergies: NO KNOWN ALLERGIES (Unverified , 06/16/13) Home Meds No Active Prescriptions or Reported Meds Information Source: Patient Past Medical History PAST MEDICAL HISTORY: Kidney Stones, UTI'S Surgical History: [employer] History: No Pertinent [employer] History Family History Family History: Reviewed,noncontributory to illness Social History Smoker: Non-Smoker Alcohol: Denies ETOH Use Drugs: Denies Drug Use Lives In: Home Was a procedure done? Was a procedure done?: No Differential Diagnosis ([employer]) Vaginal Bleeding: - Complete, - Incomplete, - Inevitable, - Missed, - Threatened, Abruptio Placentae, Blood Loss Anemia, Cervicitis, Dysmenorrhea, Ectopic , Hormonal, Menorrhagia, Menometrorrhagia, Menstrual Bleeding, Myomatous Uterus, PID, Placenta Previa, Precipitous Hct, Trauma, UTI, Vaginitis X-Ray, Labs, Meds, VS Vital Signs Date Time Temp Pulse Resp B/P (MAP) Pulse Ox O2 Delivery O2 Flow Rate FiO2 03/25/25 16:11 98.0 72 17 125/74 (91) 95 98.0 03/25/25 13:52 80 15 97 Room Air* 0 21 03/25/25 13:23 69 16 95 Room Air 03/25/25 13:23 97.9 69 16 115/50 (71) 95 97.9 03/25/25 12:52 98.9 82 18 148/60 (89) 95 98.9 Lab Test 03/25/25 13:07 03/25/25 12:52 Range/Units White Blood Count 8.8 4.4-10.8 10^3/uL Red Blood Count 4.72 4.0-5.20 10^6/uL Hemoglobin 14.5 12.2-16.2 g/dL Hematocrit 41.3 36.0-46.0 % Mean Corpuscular Volume 87.7 80.0-100.0 fL Mean Corpuscular Hemoglobin 30.8 28.0-32.0 pg Mean Corpuscular Hemoglobin Concent 35.1 32.0-36.0 g/dL Red Cell Distribution Width 13.5 11.8-14.3 % Platelet Count 350 140-450 10^3/uL Mean Platelet Volume 9.5 6.9-10.8 fL Neutrophils (%) (Auto) 68.2 37.0-80.0 % Lymphocytes (%) (Auto) 22.7 10.0-50.0 % Monocytes (%) (Auto) 7.2 0.0-12.0 % Eosinophils (%) (Auto) 1.2 0.0-7.0 % Basophils (%) (Auto) 0.7 0.0-2.0 % Neutrophils # (Auto) 6.0 1.6-8.6 10 ^3/uL Lymphocytes # (Auto) 2.0 0.4-5.4 10 ^3/uL Monocytes # (Auto) 0.6 0-1.3 10 ^3/uL Eosinophils # (Auto) 0.1 0-0.8 10 ^3/uL Basophils # (Auto) 0.1 0-0.2 10 ^3/uL Nucleated Red Blood Cells 0.2 % Sodium Level 138 136-145 mmol/L Potassium Level 3.6 3.5-5.1 mmol/L Chloride Level 105 98-107 mmol/L Carbon Dioxide Level 20 20-31 mmol/L Anion Gap 13 5-15 Blood Urea Nitrogen 7 L 9-23 mg/dL Creatinine 0.54 L 0.550-1.02 mg/dL Glomerular Filtration Rate Calc 122 >90 mL/min BUN/Creatinine Ratio 13.0 10.0-20.0 Serum Glucose 75 74-106 mg/dL Lactic Acid Level 1.0 0.4-2.0 mmol/L Calcium Level 9.6 8.7-10.4 mg/dL Magnesium Level 1.5 L 1.6-2.6 mg/dL Total Bilirubin 0.8 0.2-1.0 mg/dL Aspartate Amino Transferase (AST) 18 13-40 U/L Alanine Aminotransferase (ALT) 20 7-40 U/L Alkaline Phosphatase 83 46-116 U/L Troponin I High Sensitivity < 3 L </=34 ng/L Total Protein 6.9 5.7-8.2 g/dL Albumin 4.4 3.2-4.8 g/dL Beta HCG, Quantitative 99369.9 H 1.5-4.2 mIU/mL Urine Color Yellow Yellow Urine Clarity Turbid H Clear Urine pH 6.0 5.0-9.0 Urine Specific [place] 1.035 1.001-1.035 Urine Protein 1+ H Negative Urine Ketones 4+ H Negative Urine Blood Negative Negative /uL Urine Nitrite Negative Negative Urine Bilirubin Negative Negative Urine Urobilinogen 2 H Negative mg/dL Urine Leukocyte Esterase Negative Negative /uL Urine RBC 1 0 - 4 /hpf Urine Microscopic WBC 2 0-5 /HPF Urine Squamous Epithelial Cells Mod <5 /hpf Urine Bacteria Few H None Seen /hpf Urine Mucus Moderate None Seen Urine Glucose Normal Normal mg/dL Urine Opiates Screen Neg NEGATIVE Urine Fentanyl Screen Neg NEGATIVE Urine Barbiturates Screen Neg NEGATIVE Urine Phencyclidine Screen Neg NEGATIVE Urine Amphetamines Screen Neg NEGATIVE Urine Benzodiazepines Screen Neg NEGATIVE Urine Cocaine Screen Neg NEGATIVE Urine Cannabinoids Screen Pos NEGATIVE Current Medications Medications (Trade) Dose Ordered Sig/Tacho Route Start Time Stop Time Status Last Admin Sodium Chloride 1,000 ml @ 1,000 mls/hr Q1H ONCE IV 03/25/25 13:00 03/25/25 13:59 DC 03/25/25 13:49 Ondansetron HCl (Zofran) 8 mg ONCE ONCE IV 03/25/25 13:00 03/25/25 13:01 DC 03/25/25 13:49 Metoclopramide HCl (Reglan Injection) 5 mg ONCE ONCE IV 03/25/25 16:00 03/25/25 16:01 DC 03/25/25 16:[address] [address] Ph: [phone] DIAGNOSTIC IMAGING Diagnostic Imaging Report : [id number] Signed PATIENT: MIA FERRIS ACCT: [id number] UNIT: [id number] : 1990 LOC: ER ROOM / BED: / AGE / SEX: 34 / F ADM STATUS: REG ER SERVICE 1253 ORDERING PHYSICIAN: VALENTINA QUIROGA DO PROCEDURE(s): OBUS - OB ULTRASOUND COMP GTR 14 WKS REASON: n/v abd cramps ORDER NUMBER(s): [id number], ACCESSION NUMBER(s): [id number] LIMITED OB ULTRASOUND > 14 WKS: HISTORY: n/v abd cramps TECHNIQUE: Multiple real-time grayscale images of the gravid uterus with duplex Doppler color flow and M-mode spectral analysis. COMPARISON: 12/30/2024 FINDINGS: Presentation is transverse with head to the left Posterior placenta BPD 3.7 cm, 17 weeks 2 days Head circumference 13.3 cm, 16 days 6 days Abdominal circumference 10.8 cm, 16 weeks 5 days Femur length 2.1 cm, 16 weeks 4 days Adequate MARGY heart rate is 158 beats per minute Head circumference to abdominal circumference equals 1.2 Femur length to abdominal circumference equals 20.2 CI equals 81.2 Single intrauterine with positive heart tones Possible kissing myometrial contractions noted No previa No abruption Trans vaginal ultrasound not performed No survey IMPRESSION: 1. Single viable intrauterine measuring 16 weeks and 6 days. Estimated date of delivery is 09/03/2025 Possible kissing myometrial contractions Endovaginal ultrasound not performed ATED BY: CANDACE PERALTA MD DICTATED DATE/TIME: 03/25/251401 SIGNED BY: CANDACE PERALTA MD SIGNED DATE/TIME: 03/25/251401 CC: Time of 1ST Reevaluation: 12:40 Reevaluation 1ST: Unchanged Time of 2ND Reevaluation: 18:04 Reevaluation 2ND: Resolved Patient Education/Counseling: Diagnosis, Treatment Family Education/Counseling: No Family Present Comments Patient presented with the above HPI.--nausea and vomiting in ----workup was initiated. patient was found with the above mentioned diagnosis. the following medications were ordered: please refer to order lists of meds and tests obtained by myself Dr. Quiroga. Patient ED course and VS have been stabilized. Patient has been reassessed in the ED and remained in a stable condition. Pertinent incidental findings were discussed with the patient and/or family. Patient/family voices understanding and is agreeable with plan. Patient has been observed in the ED adequate length of time to insure i mprovement/stability. Escalation of care considered: Consideration of escalation to observation or admission Patient was DISCHARGED home in a stable condition. All the reports of any imaging studies that were ordered by myself were reviewed by myself. Departure 1 Departure Time of Disposition: 17:33 Impression: Primary Impression: Nausea and vomiting during Additional Impressions: Nausea and vomiting during prior to 22 weeks gestation UTI in Disposition: 01 HOME / SELF CARE / HOMELESS Condition: Stable Additional Instructions: Additional instructions: You MUST follow-up with your primary care/family doctor in 1 to 2 days. If you are unable to see your primary care/family doctor, please return to our emergency room for re-assessment and re-evaluation in 1 to 2 days. Return to the emergency room here in our facility or to the nearest ER [facility] if your symptoms change or worsen. CONSULTATIONS: you MUST Follow-up for consultation as soon as possible with: Dr.-OB Olvera doctor in 1-2 days. Please call for appointment. You MUST call the consultants office yourself to make an appointment. You may need to arrange that through your insurance and/or your primary/family doctor. If you are unable to see the cleaning validation consultant in 1 to 2 days, you must return to our emergency room (or any other ER of your choice) for re-assessment and re- evaluation. Adequate fluid hydration. Repeat beta-hCG levels in 48-72 hours. Repeat pelvic ultrasound in 4-5 days. Below is a copy of your radiological report for follow up: [address] [address] Ph: [phone] DIAGNOSTIC IMAGING Diagnostic Imaging Report : [id number] Signed PATIENT: MIA FERRIS ACCT: [id number] UNIT: [id number] : 1990 LOC: ER ROOM / BED: / AGE / SEX: 34 / F ADM STATUS: REG ER SERVICE 1253 ORDERING PHYSICIAN: VALENTINA QUIROGA DO PROCEDURE(s): OBUS - OB ULTRASOUND COMP GTR 14 WKS REASON: n/v abd cramps ORDER NUMBER(s): [id number], ACCESSION NUMBER(s): [id number] LIMITED OB ULTRASOUND > 14 WKS: HISTORY: n/v abd cramps TECHNIQUE: Multiple real-time grayscale images of the gravid uterus with duplex Doppler color flow and M-mode spectral analysis. COMPARISON: 12/30/2024 FINDINGS: Presentation is transverse with head to the left Posterior placenta BPD 3.7 cm, 17 weeks 2 days Head circumference 13.3 cm, 16 days 6 days Abdominal circumference 10.8 cm, 16 weeks 5 days Femur length 2.1 cm, 16 weeks 4 days Adequate MARGY heart rate is 158 beats per minute Head circumference to abdominal circumference equals 1.2 Femur length to abdominal circumference equals 20.2 CI equals 81.2 Single intrauterine with positive heart tones Possible kissing myometrial contractions noted No previa No abruption Trans vaginal ultrasound not performed No survey IMPRESSION: 1. Single viable intrauterine measuring 16 weeks and 6 days. Estimated date of delivery is 09/03/2025 Possible kissing myometrial contractions Endovaginal ultrasound not performed ATED BY: CANDACE PERALTA MD DICTATED DATE/TIME: 03/25/25 140 SIGNED BY: CANDACE PERALTA MD SIGNED DATE/TIME: 03/25/25 1402 CC: e-Prescriptions Cephalexin Monohydrate (Cephalexin) 500 Mg Tab 1 TAB PO TID for 5 Days, #15 TAB Prov: VALENTINA QUIROGA DO 03/25/25 Discharged With: Self Critical Care Note Critical Care Time?: No I personally scribed for VALENTINA QUIROGA DO ([email or web address]) on 03/25/25 at 13:17. Electronically submitted by Dewey Hendrix ([email or web address]). I personally scribed for VALENTINA QUIROGA DO ([email or web address]) on 03/25/25 at 13:45. Electronically submitted by Dewey Hendrix ([email or web address]). I personally scribed for VALENTINA QUIROGA DO ([email or web address]) on 03/25/25 at 14:56. Electronically submitted by Dewey Hendrix ([email or web address]). I personally scribed for VALENTINA QUIROGA DO ([email or web address]) on 03/25/25 at 15:25. Electronically submitted by Dewey Hendrix ([email or web address]). VALENTINA QUIROGA DO Mar 25, 2025 13:17
[2025-03-25 13:33] LABS: Basophils # (auto) 0.1 10 ^3/uL (0-0.2); Basophils % (auto) 0.7 % (0.0-2.0); Eosinophils # (auto) 0.1 10 ^3/uL (0-0.8); Eosinophils % (auto) 1.2 % (0.0-7.0); Hematocrit 41.3 % (36.0-46.0); Hemoglobin 14.5 g/dL (12.2-16.2); Lymphocytes % (auto) 22.7 % (10.0-50.0); Mean Corpuscular Hemoglobin 30.8 pg (28.0-32.0); Mean Corpuscular Hgb Conc. 35.1 g/dL (32.0-36.0); Mean Corpuscular Volume 87.7 fL (80.0-100.0); Monocytes # (auto) 0.6 10 ^3/uL (0-1.3); Monocytes % (auto) 7.2 % (0.0-12.0); Neutrophils % (auto) 68.2 % (37.0-80.0); Nucleated Red Blood Cells % 0.2 %; Platelet Count (auto) 350 10^3/uL (140-450); Red Blood Cells 4.72 10^6/uL (4.0-5.20); Red Cell Distribution Width 13.5 % (11.8-14.3); White Blood Cell 8.8 10^3/uL (4.4-10.8)
[2025-03-25 13:39] LABS: Alanine Aminotransferase 20 U/L (7-40); Alkaline Phosphatase 83 U/L (46-116); Anion Gap 13 (5-15); Aspartate Aminotransferase 18 U/L (13-40); Calcium 9.6 mg/dL (8.7-10.4); Carbon Dioxide 20 mmol/L (20-31); Chloride 105 mmol/L (98-107); Glucose 75 mg/dL (74-106); Potassium 3.6 mmol/L (3.5-5.1); Sodium 138 mmol/L (136-145); Total Protein 6.9 g/dL (5.7-8.2)
[2025-03-25 13:40] LABS: Albumin 4.4 g/dL (3.2-4.8); Bilirubin, Total 0.8 mg/dL (0.2-1.0)
[2025-03-25 13:46] LABS: Blood Urea Nitrogen 7 mg/dL (9-23); Magnesium 1.5 mg/dL (1.6-2.6)
[2025-03-25] MEDS: SODIUM CHLORIDE 0.9% 1,000 ML IV ONE (13:49)
[2025-03-25] MEDS: ONDANSETRON HCL 4 MG/2 ML VIAL IV ONE (13:49)
[2025-03-25 13:52] VITALS: PULSE 80; RESP 15; O2SAT 97
--- NOTE | 2025-03-25 14:04 | DVH ---
LIMITED OB ULTRASOUND > 14 WKS: HISTORY: n/v abd cramps TECHNIQUE: Multiple real-time grayscale images of the gravid uterus with duplex Doppler color flow an d M-mode spectral analysis. COMPARISON: 12/30/2024 FINDINGS: Presentation is transverse with head to the left Posterior placenta BPD 3.7 cm, 17 weeks 2 days Head circumference 13.3 cm, 16 days 6 days Abdominal circumference 10.8 cm, 16 weeks 5 days Femur length 2.1 cm, 16 weeks 4 days Adequate MARGY heart rate is 158 beats per minute Head circumference to abdominal circumference equals 1.2 Femur length to abdominal circumference equals 20.2 CI equals 81.2 Single intrauterine with positive heart tones Possible kissing myometrial contractions noted No previa No abruption Trans vaginal ultrasound not performed No survey IMPRESSION: 1. Single viable intrauterine measuring 16 weeks and 6 days. Estimated date of delivery is 09/03/2025 Possible kissing myometrial contractions Endovaginal ultrasound not performed
[2025-03-25 14:16] LABS: Urine Bacteria FEW /hpf (None Seen); Urine Blood Negative /uL (Negative); Urine Clarity Turbid (Clear); Urine Color Yellow (Yellow); Urine Mucus MODERATE (None Seen); Urine Protein, UAD 1+ (Negative); Urine Specific Gravity 1.035 (1.001-1.035); Urine Squamous Epithelial Cell MOD /hpf (<5); Urine Urobilinogen 2 mg/dL (Negative); Urine WBC 2 /HPF (0-5)
[2025-03-25 16:00] LABS: Amphetamine Screen, Urine Neg (NEGATIVE); Barbiturate Scree,Urine Neg (NEGATIVE); Benzodiazephine Screen, Urine Neg (NEGATIVE); Cannabinoid Screen, Urine Pos (NEGATIVE); Cocaine Screen, Urine Neg (NEGATIVE); Opiate Scree,Urine Neg (NEGATIVE); Phencyclidine Screen, Urine Neg (NEGATIVE)
[2025-03-25] MEDS: METOCLOPRAMIDE HCL 5MG/ml INJ 2ml VIAL IV ONE (16:09)
[2025-03-25 16:11] VITALS: BP 125/74; PULSE 72; RESP 17; TEMP 98; O2SAT 95
[2025-03-25] MEDS ORDERED: CEPH500T PO (22:08)
== END 2025-03-25 18:11 | disposition home or self-care (01) ==
LOC: ER 12:41
DX: Z34.90 Encounter for supervision of normal pregnancy, unspecified, unspecified trimester (principal); Z3A.17 17 weeks gestation of pregnancy; Z98.890 Other specified postprocedural states; Z79.899 Other long term (current) drug therapy
CPT/HCPCS: 36415; 76805; 80053; 80307; 81001; 83605; 83735; 84484; 84702; 85025; 96361; 96374; 96375; 99285; J2405; J2765; J7030

== ENCOUNTER 2025-06-29 22:42 | Observation (INO) | payer MEDICAID ==
[~2025-06-29] VITALS: Ht 160 cm; Wt 86.2 kg
[~2025-06-29 22:42] MED LIST changes: +CEPH500T PO; -DOXY-286 PO; -FLUO-470 PO; -TRAM-626 PO; -TRAZ-227 PO
--- NOTE | 2025-06-30 00:29 | DVH ---
INDICATION: Placental integrity TECHNIQUE: Multiple real-time grayscale transabdominal sonographic images along with color and duplex Doppler of the uterus and ovaries were obtained. COMPARISON: US OB ULTRASOUND COMP GTR 14 WKS on DOS: 03/25/25, US OB ULTRASOUND COMP LESS 14WKS on DOS : 12/30/24, US PELVIC on DOS: 11/12/24 FINDINGS: Cephalic presentation and posterior placenta location without evidence of previa, abruption or accreta. Amniotic fluid index equals 12.1 cm, within normal limits. heart tones documented at 151 beats per minute. IMPRESSION: 1. Posterior placenta without evidence of previa, abruption or accreta. Positive heart tones.
--- NOTE | 2025-06-30 01:02 | DVHDS2 ---
Physician Discharge Progress N Final Diagnosis: testing S/P abdominal trauma Secondary Diagnosis: contractions, not in labor Operations or Procedures: Operations or Procedures SUBJECTIVE Roula Diez is a 35 year old with IUP at 31w1d presenting after a fall Patient tripped over her dog at 2200 and fell forward. She caught herself with her hands, but did hit her belly on the floor and scrape her ankle. Since then, she has felt intermittent pelvic pain that feels like contractions "every couple of minutes". Denies any leaking fluid or vaginal bleeding. States positive movement. Denies headache or blurry vision. No complications. Patient states she has been under a lot of stress recently with family members' health issues, as well as her own [employer] stress. States she feels safe at home and denies any abuse with partner OB Hx: prev c/s x5 Review of Systems: Neurologic: Denies Cardiology: Denies Respiratory: Denies Abdomen: Occasional sharp pain in the lower pelvis. Extremities: Pain in the R ankle OBJECTIVE Vitals: 2335 T: 98.1 Vitals: 0020 BP: 116/71 HR: 86 RR: 16 SpO2: 95 Neurologic: Alert and oriented. Affect appropriate Cardiology: Clear S1 and S2. Regular rate and rhythm Respiratory: Clear lung sounds. No coughing or shortness of breath Abdomen: No tenderness to the touch. Uterus soft between UCs Extremities: 5 cm abrasion noted on R ankle. US for placental integrity WNL. No evidence of abruption. Cervical length 3.02cm and closed on preliminary report. SSE: cervix visualized and closed. No fluid or blood noted. FHR Baseline:135 Variability: Moderate Accelerations: Present Decelerations: Absent Category 1 Tracing UCs: 5 in 10 minutes, irregular. Mild palpation ASSESSMENT -35 yo IUP at 31w1d -Abdominal trauma from fall - contractions PLAN -0.25 mg Terbutaline given SQ and 1000mL LR given IV -Monitor FHR for 4 hours post fall. Category 1 tracing. Interventions diminished frequency and intensity of contractions. Patient does not feel them anymore -Discussed labor precautions, abdominal trauma precautions, and kick counts. Reviewed when to present to ER for emergency symptoms. -Discussed POC with Dr Garcia. agrees with POC to discharge patient at this time. Other Interventions Other Interventions INDICATION: Placental integrity TECHNIQUE: Multiple real-time grayscale transabdominal sonographic images along with color and duplex Doppler of the uterus and ovaries were obtained. COMPARISON: US OB ULTRASOUND COMP GTR 14 WKS on DOS: 03/25/25, US OB ULTRASOUND COMP LESS 14WKS on DOS: 12/30/24, US PELVIC on DOS: 11/12/24 FINDINGS: Cephalic presentation and posterior placenta location without evidence of previa, abruption or accreta. Amniotic fluid index equals 12.1 cm, within normal limits. heart tones documented at 151 beats per minute. IMPRESSION: 1. Posterior placenta without evidence of previa, abruption or accreta. Positive heart tones. Condition on Discharge: Good Disposition: Home Discharge Instructions: Diet: Regular Activity: No Restrictions, As Tolerated Follow Up/Referral: care with [facility]. See Dr. Collazo for visits as previiously scheduled Medications: See Med List Follow Up Care: Specialist: Follow-up as previously scheduled Discharge Statement: "Patient was advised to return to the ER or call 911 if any headaches, dizziness, shortness of breath, chest pain, abdominal pain, bleeding, fevers, or worsening of medical condition. Patient was counseled about treatment plan, medications, possible side effects, patientverbalized understanding. All questions were answered to the best of my ability. This discharge took greater then 30 minutes in planning, reviewing documentation, counseling the patient, and discussing with other team members." Visit Coding OBN Date of Service: Jun 30, 2025 Billing Provider: JARED STEARNS CNM OPERATION SUPERVISOR Common Visit Codes: 09444-ZEHPHKH INP/OBS CARE (HIGH) OPERATION SUPERVISOR Procedure Codes: 70735-04- NON-STRESS TEST JARED STEARNS CNM Jun 30, 2025 01:02
[2025-06-30] MEDS ORDERED: LACTATED RINGER'S 1,000 ML IV ONE (01:15)
[2025-06-30] MEDS ORDERED: LACTATED RINGER'S 1,000 ML IV SCH (01:15)
[2025-06-30] MEDS ORDERED: TERBUTALINE SULFATE 1 MG/ML 1ML VIAL SC SCH (01:30)
[2025-06-30] MEDS: TERBUTALINE SULFATE 1 MG/ML 1ML VIAL SC ONE (01:59)
== END 2025-06-30 02:55 | disposition home or self-care (01) ==
LOC: LDRP 22:42
PROVIDERS: ADMIT Obstetrics & Gynecology; ATTEND Obstetrics & Gynecology
DX: O60.03 Preterm labor without delivery, third trimester (principal); Z98.890 Other specified postprocedural states; Z79.899 Other long term (current) drug therapy; Z3A.31 31 weeks gestation of pregnancy; W01.0XXA Fall on same level from slipping, tripping and stumbling without subsequent striking against object, initial encounter; Y93.89 Activity, other specified; Y92.89 Other specified places as the place of occurrence of the external cause; Y99.8 Other external cause status
CPT/HCPCS: 59025; 76815; 81002; 94762; 96361; 96372; G0378; J3105

== ENCOUNTER 2025-07-01 17:43 | Observation (INO) | payer MEDICAID ==
--- NOTE | 2025-07-01 19:52 | DVH ---
EXAM: US OBSTERICAL LIMITED CLINICAL HISTORY: Pt complaining of contrations COMPARISON: US OBSTERICAL LIMITED on DOS: 06/29/25, US OB ULTRASOUND COMP GTR 14 WKS on DOS: 03/25/25, US OB ULTRASOUND COMP LESS 14WKS on DOS: 12/30/24 TECHNIQUE: Grayscale, color-flow Doppler, and spectral Doppler ultrasound of the pelvis is performed by transabdominal technique. Findings/Impression: Single live intrauterine in vertex presentation with heart rate of 138 bpm. Cervical os appears closed and measures 3.9 cm in length. Placenta is posterior in location without evidence of previa or abruption. MARGY 14.0 cm. MVP 4.8 cm.
--- NOTE | 2025-07-02 06:24 | DVHDS2 ---
Discharge Summary Date of Admission Jul 01, 2025 at 17:43 Date of Discharge: Jul 01, 2025 Admitting Diagnosis Patient had fall 2 days prior here for reassurance rule out contractions Wounds: none Brief Hx & Hospital Course: patient here for nst US all performed and reassuring.... Operations or Procedures NST OB US Condition at Discharge: Good Final Diagnosis/Problems List reasuring fetus and maternal evaluation Discharge Disposition: Home Discharge Instruct/Medications Diet: Regular Activity: No Restrictions, As Tolerated Scheduled Cephalexin Monohydrate (Cephalexin), 1 TAB PO TID Discharge Statement: "Patient was advised to return to the ER or call 911 if any headaches, dizzine ss, shortness of breath, chest pain, abdominal pain, bleeding, fevers, or worsening of medical condition. Patient was counseled about treatment plan, medications, possible side effects, patientverbalized understanding. All questions were answered to the best of my ability. This discharge took greater then 30 minutes in planning, reviewing documentation, counseling the patient, and discussing with other team members." ASSESSMENT ASSESSMENT Assessment Visit Coding OBGYN Date of Service: Jul 01, 2025 Billing Provider: MEME REDMAN DO PROGRAM EVALUATOR Common Visit Codes: 08328-VVL/OBS SAME DATE (LOW), 46235-DGV/OBS SAME DATE (MOD), 51188-SHI/OBS SAME DATE (HIGH) PROGRAM EVALUATOR Procedure Codes: 76702-55- NON-STRESS TEST MEME REDMAN DO Jul 02, 2025 06:24
== END 2025-07-01 19:12 | disposition home or self-care (01) ==
LOC: LDRP 17:43
PROVIDERS: ADMIT Obstetrics & Gynecology; ATTEND Obstetrics & Gynecology
DX: O26.893 Other specified pregnancy related conditions, third trimester (principal); R10.9 Unspecified abdominal pain; M79.671 Pain in right foot; Z3A.31 31 weeks gestation of pregnancy; Z98.890 Other specified postprocedural states; Z79.899 Other long term (current) drug therapy
CPT/HCPCS: 59025; 76815; 76817; 81002; 94760; G0378